=== PATIENT | female | born 2000 | race Caucasian/White ===

== ENCOUNTER 2023-10-31 09:03 | Outpatient (AMB) | payer BC, SELFPAY ==
--- OUTSIDE RECORDS SUMMARY | 2023-10-31 09:05 | XMS_ITS | Continuity of Care Document ---
Author Organization [facility] Dave Neal lt Address [address] [place] [address]- Care Team Providers Care Research Animal Facility Supervisor Name Role Phone Chandan ROTH, Elizabeth Javed Primary Care Physician [facility] Date[facility]): 09[facility]23 - 10/30/23 [facility] Adult [address] [place] [address]- Allergies, Adverse Reactions, Alerts No Known Medication Allergies Substance Reaction Severity Status Bananas angioedmea Active Immunizations Given and Recorded Vaccine Date Status Refusal Reason influenza virus vaccine, inactivated 05/15/22 Alfred rded influenza virus vaccine, inactivated 03/24/21 Alfred rded influenza virus vaccine, inactivated 03/10/20 Alfred rded influenza virus vaccine, inactivated 03/19/19 Alfred rded influenza virus vaccine, inactivated 06/15/18 Alfred rded influenza virus vaccine, inactivated 1 04/18/17 Gi cullen influenza virus vaccine, inactivated 04/26/16 Alfred rded influenza virus vaccine, inactivated 05/19/15 Alfred rded [id number] bivalent booster vax 05/15/22 Recorded SARS-CoV-2 (COVID-19) mRNA-1273 vaccine 09/26/20 R ecorded SARS-CoV-2 (COVID-19) mRNA-1273 vaccine 08/29/20 R ecorded Meningococcal Conjugate Vaccine 06/12/16 Recorded Hepatitis A Pediatric Vaccine 06/12/16 Recorded Hepatitis A Pediatric Vaccine 05/19/15 Recorded pneumococcal 23-valent vaccine 04/26/16 Recorded 1Result Comment: [04/18/2017] [facility] 22092-110-55 Medications 530 G with enlite sensor and supplies 530 G with enlite sensor and supplies, See Instructions, # 1 application, Refills 0, Tot. Refills 0, Maintenance, dispense 530 G with Enlite sensor and supplies for type 1 diabetes, 04/18/15 8:22:45,Compound Start Date: 04/18/15 Status: Ordered albuterol CFC free 90 mcg/inh inhalation aerosol 2 puffs, Inhalation, Every 4 hours, PRN for wheezing, # 8.5 Gm, 0 Refills, Maintenance, Aerosol Start Date: 07/31/09 Status: Ordered Margoth = 180 mg, By Mouth, PRN Other, allergy, 0 Refills, Maintenance, 07/17/15 13:42:12 Start Date: 07/17/15 Status: Ordered Shawn [employer] Contour Test Strips See Instructions, # 360 each, Refills 6, Tot. Refills 6, Maintenance, Use to check blood glucoselevels up to 4 times a day,E10.9, 03/15/22 16:46:00 EDT, Compound, 170, cm, 03/15/22 15:11:00 EDT, Height Start Date: 03/15/22 Status: Ordered Contour Next EZ Test Strips See Instructions, # 360 each, Refills 3, Tot. Refills 3, Maintenance, use as directed for Type 1 Diabetes Mellitus for 90 days, 10/14/19 13:17:00 EDT, Supply, 170, cm, 07/01/19 15:10:00 EST, Height, 101, kg, 01/19/19 13:01:00 EDT, Dry Weight Start Date: 10/14/19 Stop Date: 10/08/20 Status: Ordered Dexcom G6 hemodialysis technician Dexcom G6 hemodialysis technician, See Instructions, # 1 each, Refills 6, Tot. Refills 6, Maintenance, IDDM use with Dexcom sensor, 03/15/22 16:46:00 EDT, Compound, 170, cm, 03/15/22 15:11:00 EDT, Height Start Date: 03/15/22 Status: Ordered Dexcom G6 sensors Dexcom G6 sensors, See Instructions, # 9 each, Refills 3, Tot. Refills 3, Maintenance, IDDM, changeevery 10 days. 90 day supply. E10.65, 09/23/22 14:15:00 EDT, Compound, 170, cm, 09/20/22 14:11:00 EDT, Height Start Date: 09/23/22 Status: Ordered Dexcom G6 transmitter Dexcom G6 transmitter, See Instructions, # 1 each, Refills 3, Tot. Refills 3, Maintenance, IDDM, change every 90 days. E10.65 90 day supply., 09/03/22 15:52:00 EDT, Compound, 170, cm, 09/03/22 15:31:00 EDT, Height Start Date: 09/03/22 Status: Ordered Dulera Inhalation, 2 times a day, 0 Refills, Maintenance, 10/17/16 13:48:29 Start Date: 10/17/16 Status: Ordered Glucagon Emergency Kit See Instructions, # 2 kit, Refills 5, Tot. Refills 5, Maintenance, use for t1dm, 01/15/12 17:39:03 Start Date: 01/15/12 Status: Ordered Glucagon Emergency Kit See Instructions, # 2 kit, Refills 11, Tot. Refills 11, Maintenance, Use as directed for type 1 diabetes PRN low blood glucose, 12/14/13 19:21:27, Compound Start Date: 12/14/13 Status: Ordered Glucagon Emergency Kit See Instructions, PRN, # 2 each, Refills 3, Tot. Refills 3, Maintenance, Blood Glucose, use as directed for Type 1 Diabetes Mellitus, 12/19/21 9:30:00 EDT, Compound, 170, cm, 10/04/21 14:21:00 EDT, Height Start Date: 12/19/21 Stop Date: 04/18/22 Status: Ordered Glucagon Emergency Kit See Instructions, # 2 kit, Refills 11, Tot. Refills 11, Maintenance, Use as directed for type 1 diabetes PRN severe low blood sugar, 07/06/15 14:14:33, Compound Start Date: 07/06/15 Status: Ordered Humalog 100 u/ml subcutaneous injection See Instructions, Subcutaneous Injection, Use as directed for Diabetes mellitus type 1. (Max Dose =120 units/day). 10 mL vials. 90 day supply ID#[id number], # 120 mL, 4 Refills, Maintenance, 03/28/2316:22:00 EDT, [facility],... Start Date: 03/28/23 Stop Date: 06/20/24 Status: Ordered Insulin Syringe, BD Ultra-Fine 0.3 cc 31 G x 8 mm (5/16in) See Instructions, # 100 Doses, Refills 6, Tot. Refills 6, Maintenance, dispense half unit syringes,08/25/09 11:07:30, [facility] [address] Start Date: 08/25/09 Status: Ordered Ketostix See Instructions, # 2 vials, Refills 5, Tot. Refills 5, Maintenance, use as directed for Type 1 Diabetes. Test if blood sugar is >300 x2, or if vomiting or illness. Max use 5x daily, 07/03/18 10:47:49 EST, 2 bottles, Compound Start Date: 07/03/18 Stop Date: 12/30/18 Status: Ordered Lantus 100 u/ml subcutaneous solution = 10 units, Subcutaneous Injection, Daily, IDDM use one daily if pump fails. Max 50 units daily, # 10 mL, 6 Refills, Maintenance, 03/15/22 16:45:00 EDT, Solution, [id number], 170, cm, 03/15/22 15:11:00 EDT, Height Start Date: 03/15/22 Status: Ordered Omnaris 2 sprays, Daily, 0 Refills, Maintenance, 10/17/16 13:48:47 Start Date: 10/17/16 Status: Ordered One Touch Ultra Test Strips See Instructions, # 750 each, Refills 3, Tot. Refills 3, Maintenance, use as directed for Type 1 Diabetes Mellitus. Test 7-8x/daily, 09/30/19 16:08:00 EDT, Compound, 170, cm, 07/01/19 15:10:00 EST, Height, 101, kg, 01/19/19 13:01:00 EDT, Dry Weight Start Date: 09/30/19 Stop Date: 09/24/20 Status: Ordered Patient to use Medtronic 530g with enlite transmitters and sensors Patient to use Medtronic 530g with enlite transmitters and sensors, See Instructions, # 1 each, Refills 0, Tot. Refills 0, Maintenance, Insulin pump and CGM for type 1 diabetes, 05/13/14 8:11:18, Compound Start Date: 05/13/14 Status: Ordered Pen [place], 31 G x 5 mm BD Ultra Fine III See Instructions, # 100 Doses, Refills 6, Tot. Refills 6, Maintenance, use with insulin pen, 08/25/09 11:08:04[facility] [address] Start Date: 08/25/09 Status: Ordered Spiriva = 18 mcg, Inhalation, Daily, 0 Refills, Maintenance, 10/17/16 13:48:37 Start Date: 10/17/16 Status: Ordered Problem List Condition Confirmation Course Effective Dates Status Health St atus Informant Asthma Confirmed Active Insulin dependent diabetes mellitus Confirmed Active Obesity Confirmed Active Severe obesity Confirmed Active Thyroid nodule Confirmed Active Diabetes mellitus type 1 with goal HbA1C below 7.5 Confirmed Active Social History Social History Type Response Smoking Status Never (less than 100 in lifetime) entered on: 09/13/21 Sex Patient Care team information Care Team Personnel Name: Chandan ROTH, Elizabeth Javed Position: [facility] PCO Associate Professional Member Role: PCP Address: Address: [address] [place] [id number]- [place] Care Team Related Persons Name: JAROCHO ZARATE Address: [address] [place] [address] Name: DAPHNEY ZARATE Address: [address] [place], [place] Name: DAPHNEY ZARATE Address: [address] [place] [address]
--- OUTSIDE RECORDS SUMMARY | 2023-10-31 09:05 | XMS_ITS | Continuity of Care Document ---
Author Organization [facility] Address [address] [place] [id number]- Care Team Providers Care Linseed Oil Press Tender Name Role Phone Chandan ROTH, Elizabeth Javed Primary Care Physician [phone] [facility]counter [facility] Date(s): 03/12/23 - 04/11/23 [facility] [address] [place] [id number] Allergies, Adverse Reactions, Alerts No Known Medication [...] influenza virus vaccine, inactivated 05/19/15 Alfred rded [id number] bivalent booster vax 05/15/22 Recorded SARS-CoV-2 (COVID-19) mRNA-1273 vaccine 09/26/20 R ecorded SARS-CoV-2 (COVID-19) mRNA-1273 vaccine 08/29/20 R ecorded Meningococcal Conjugate Vaccine 06/12/16 Recorded Hepatitis A Pediatric Vaccine 06/12/16 Recorded Hepatitis A Pediatric Vaccine 05/19/15 Recorded pneumococcal 23-valent vaccine 04/26/16 Recorded 1Result Comment: [04/18/2017] [facility] 74549-550-18 Medications 530 G with enlite sensor and [...] 07/17/15 13:42:12 Start Date: 07/17/15 Status: Ordered Mouth Party Contour Test Strips See Instructions, # 360 [...] Stop Date: 10/08/20 Status: Ordered Dexcom G6 home visits nurse Dexcom G6 home visits nurse, See Instructions, # 1 each, Refills 6, [...] units/day). 10 mL vials. 90 day supply ID#[id number], # 120 mL, 4 Refills, Maintenance, 03/28/2316:22:00 EDT, [facility],... Start Date: 03/28/23 Stop Date: 06/20/24 [...] Compound Start Date: 05/13/14 Status: Ordered Pen [place], 31 G x 5 mm BD Ultra Fine III See Instructions, # 100 Doses, Refills 6, Tot. Refills 6, Maintenance, use with insulin pen, 08/25/09 11:08:04, [facility] [address] Start Date: 08/25/09 Status: Ordered [...] Personnel Name: Chandan ROTH, Elizabeth Javed Position: [facility] PCO Associate Professional Member Role: PCP Address: Address: [address] [place] [address]- Care Team Related Persons Name: JAROCHO ZARATE Address: [address] [address] Name: DAPHNEY ZARATE Address: [address] [place], [place] Name: DAPHNEY ZARATE Address: [address] [address]
--- OUTSIDE RECORDS SUMMARY | 2023-10-31 09:05 | XMS_ITS | Continuity of Care Document ---
Author Organization [facility] Diabetes Address [address] [place] [address]- Care Team Providers Care Varnish Dipper Name Role Phone Chandan ROTH, Elizabeth Javed Primary Care Physician [phone] [facility]counter [facility] Date(s): 02/18/22 - 03/20/22 [facility] Diabetes [address] [place] [id number] Allergies, Adverse Reactions, Alerts No Known Medication Allergies Substance Reaction Severity Status Bananas angioedmea Active Immunizations Given and Recorded Vaccine Date Status Refusal Reason influenza virus vaccine, inactivated 03/24/21 Alfred rded influenza virus vaccine, inactivated 03/10/20 Alfred rded influenza virus vaccine, inactivated 03/19/19 Alfred rded influenza virus vaccine, inactivated 06/15/18 Alfred rded influenza virus vaccine, inactivated 1 04/18/17 Gi cullen influenza virus vaccine, inactivated 04/26/16 Alfred rded influenza virus vaccine, inactivated 05/19/15 Alfred rded SARS-CoV-2 (COVID-19) mRNA-1273 vaccine 09/26/20 R ecorded SARS-CoV-2 (COVID-19) mRNA-1273 vaccine 08/29/20 R ecorded Meningococcal Conjugate Vaccine 06/12/16 Recorded Hepatitis A Pediatric Vaccine 06/12/16 Recorded Hepatitis A Pediatric Vaccine 05/19/15 Recorded pneumococcal 23-valent vaccine 04/26/16 Recorded 1Result Comment: [04/18/2017] [facility] [id number] Medications 530 G with enlite sensor and [...] 07/17/15 13:42:12 Start Date: 07/17/15 Status: Ordered [employer] Contour Test Strips See Instructions, # 360 [...] Stop Date: 10/08/20 Status: Ordered Dexcom G6 logistics research engineer Dexcom G6 logistics research engineer, See Instructions, # 1 each, Refills 6, Tot. Refills 6, Maintenance, IDDM use with Dexcom sensor, 03/15/22 16:46:00 EDT, Compound, 170, cm, 03/15/22 15:11:00 EDT, Height Start Date: 03/15/22 Status: Ordered Dexcom G6 sensors Dexcom G6 sensors, See Instructions, # 3 each, Refills 11, Tot. Refills 11, Maintenance, IDDM, change every 10 days, 03/15/22 16:46:00 EDT, Compound, 170, cm, 03/15/22 15:11:00 EDT, Height Start Date: 03/15/22 Status: Ordered Dexcom G6 transmitter Dexcom G6 transmitter, See Instructions, # 1 each, Refills 3, Tot. Refills 3, Maintenance, IDDM, change every 90 days, 02/13/21 9:58:00 EDT, Compound, 170, cm, 12/20/20 15:10:00 EDT, Height Start Date: 02/13/21 Status: Ordered docusate sodium 100 mg oral capsule 100 mg, 1, capsule, By Mouth, 2 times a day, PRN, with plenty of water. Take while on narcotic medications., # 20 capsule, Refills 0, Tot. Refills 0, Maintenance, as needed for constipation, 07/09/1809:12:55, Print Requisition Start Date: 07/09/17 Status: Ordered Dulera Inhalation, 2 times a [...] (Max Dose =120 units/day). 10 mL vials. ID#[id number], # 100 mL, 6 Refills, Maintenance, 03/15/22 16:45:00 EDT,[id number], 170, cm, 03/15/22 15:11:00 ED... Start Date: 03/15/22 Stop Date: 12/05/23 Status: Ordered Insulin Syringe, BD Ultra-Fine 0.3 [...] Compound Start Date: 05/13/14 Status: Ordered Pen [place], 31 G x 5 mm BD Ultra Fine III See Instructions, # 100 Doses, Refills 6, Tot. Refills 6, Maintenance, use with insulin pen, 08/25/09 11:08:04, [facility], [address] Start Date: 08/25/09 Status: Ordered Spiriva = 18 mcg, Inhalation, Daily, 0 Refills, Maintenance, 10/17/16 13:48:37 Start Date: 10/17/16 Status: Ordered Problem List Condition Confirmation Course Effective Dates Status Health St atus Informant Asthma Confirmed Active Insulin dependent diabetes mellitus Confirmed Active Obese class II Confirmed Active Obesity Confirmed Active Thyroid nodule Confirmed Active Diabetes mellitus type 1 with goal HbA1C below 7.5 Confirmed Active Social History Social History Type Response Smoking Status Never (less than 100 in lifetime) entered on: 09/13/21 Sex Patient Care team information Personnel Name: Elizabeth Hawley NP Address: Address: [address] [place] [id number]
--- OUTSIDE RECORDS SUMMARY | 2023-10-31 09:05 | XMS_ITS | Continuity of Care Document ---
Author Organization [facility] Address [address] [place] [phone]- Care Team Providers Care Technical Support Manager Name Role Phone Kang DORae Primary Care Physician [place] [facility] [place] 12/17/19 - 01/16/20 [facility] [address] [place] [address]- [facility] Allergies, Adverse Reactions, Alerts No Known Medication Allergies Substance Reaction Severity Status Bananas angioedmea Active Immunizations Given and Recorded Vaccine Date Status Refusal Reason influenza virus vaccine, inactivated 1 04/18/17 Gi cullen 1Result Comment: [04/18/2017] [facility] 36850-508-36 Medications 530 G with enlite sensor and [...] 13:42:12 Start Date: 07/17/15 Status: Ordered Shawn [employer] Contour Test Strips See Instructions, # 360 each, Refills 3, Tot. Refills 3, Maintenance, Use to check blood glucoselevels up to 4 times a day,E10.9, 10/01/19 13:50:00 EDT, Compound, 170, cm, 07/01/19 15:10:00 EST, Height, 101, kg, 01/19/19 13:01:00 EDT, Dry Weight Start Date: 10/01/19 Status: Ordered Contour Next EZ Test Strips See Instructions, # 360 each, Refills 3, Tot. Refills 3, Maintenance, use as directed for Type 1 Diabetes Mellitus for 90 days, 10/14/19 13:17:00 EDT, Supply, 170, cm, 07/01/19 15:10:00 EST, Height, 101, kg, 01/19/19 13:01:00 EDT, Dry Weight Start Date: 10/14/19 Stop Date: 10/08/20 Status: Ordered Dexcom G6 armhole feller handstitching machine Dexcom G6 armhole feller handstitching machine, See Instructions, # 1 each, Refills 0, Tot. Refills 0, Maintenance, IDDM use with Dexcom sensor, 01/19/19 13:35:18 EDT, Compound Start Date: 01/19/19 Status: Ordered Dexcom G6 sensors Dexcom G6 sensors, See Instructions, # 3 each, Refills 11, Tot. Refills 11, Maintenance, IDDM, change every 10 days, 01/19/19 18:19:00 EDT, Compound Start Date: 01/19/19 Status: Ordered Dexcom G6 transmitter Dexcom G6 transmitter, See Instructions, # 1 each, Refills 11, Tot. Refills 11, Maintenance, IDDM, change every 90 days, 01/19/19 13:36:25 EDT, Compound Start Date: 01/19/19 Status: Ordered docusate sodium 100 mg oral [...] 14:14:33, Compound Start Date: 07/06/15 Status: Ordered Glucagon Emergency Kit See Instructions, # 2 kit, Refills 5, Tot. Refills 5, Maintenance, use for t1dm, 01/15/12 17:39:03 Start Date: 01/15/12 Status: Ordered Glucagon Emergency Kit See Instructions, PRN, # 2 each, Refills 3, Tot. Refills 3, Maintenance, Blood Glucose, use as directed for Type 1 Diabetes Mellitus, 10/01/19 13:46:00 EDT, Compound, 170, cm, 07/01/19 15:10:00 EST, Height, 101, kg, 01/19/19 13:01:00 EDT, Dry Weight Start Date: 10/01/19 Stop Date: 01/29/20 Status: Ordered Glucagon Emergency Kit See Instructions, # 2 kit, Refills 11, Tot. Refills 11, Maintenance, Use as directed for type 1 diabetes PRN low blood glucose, 12/14/13 19:21:27, Compound Start Date: 12/14/13 Status: Ordered Humalog 100 u/ml subcutaneous injection See Instructions, Subcutaneous Infusion. max 75 unit daily, 11 Refills, Maintenance, 30, days Start Date: 11/02/10 Status: Ordered Humalog 100 u/ml subcutaneous injection See Instructions, Subcutaneous Injection, Use as directed for Diabetes mellitus type 1. (Max Dose =120 units/day). 10 mL vials. ID#[id number], # 120 mL, 3 Refills, Maintenance, 12/17/19 9:33:00 EDT, [facility], 170, cm, ... Start Date: 12/17/19 Stop Date: 12/11/20 Status: Ordered Insulin Syringe, BD Ultra-Fine 0.3 cc 31 G x 8 mm (5/16in) See Instructions, # 100 Doses, Refills 6, Tot. Refills 6, Maintenance, dispense half unit syringes,08/25/09 11:07:30, [facility], [address] Start Date: 08/25/09 Status: [...] daily, # 10 mL, 6 Refills, Maintenance, 06/30/18 16:18:23 EST, Solution Start Date: 06/30/18 Status: Ordered Omnaris 2 sprays, Daily, 0 [...] Compound Start Date: 05/13/14 Status: Ordered Pen [place], 31 G x 5 mm BD Ultra Fine III See Instructions, # 100 Doses, Refills 6, Tot. Refills 6, Maintenance, use with insulin pen, 08/25/09 11:08:04, [facility] [address] Start Date: 08/25/09 Status: Ordered Spiriva = 18 mcg, Inhalation, Daily, 0 Refills, Maintenance, 10/17/16 13:48:37 Start Date: 10/17/16 Status: Ordered Problem List Condition Effective Dates Status Health Status Inform ant Asthma(Confirmed) Active Insulin dependent diabetes mellitus(Confirmed) Active Obesity(Confirmed) Active Thyroid nodule(Confirmed) Active Diabetes mellitus type 1 wit h goal HbA1C below 7.5(Confirmed) Active Social History Social History Type Response Smoking Status Never smoker; Tobacc o user in household: No entered on: 8/11/17 Sex
--- OUTSIDE RECORDS SUMMARY | 2023-10-31 09:05 | XMS_ITS | Continuity of Care Document ---
Author Organization [facility] ter Address [address] [place] [address]- Care Team Providers Care Political Cartoonist Name Role Phone Kang Rae Primary Care Physician [place] [facility] [place] Date(s): 10/31/20 - 11/30/[address] [address]- Attending Physician: Admtr, Ar8 Admitting Physician: Admtr, Ar8 Referring Physician: Admtr, Ar8 Allergies, Adverse Reactions, Alerts No Known Medication Allergies Substance Reaction Severity Status Bananas angioedmea Active Immunizations Given and Recorded Vaccine Date Status Refusal Reason influenza virus vaccine, inactivated 1 04/18/17 Gi cullen 1Result Comment: [04/18/2017] [facility] [id number] Medications 530 G with enlite sensor and [...] Stop Date: 10/08/20 Status: Ordered Dexcom G6 icu specialist Dexcom G6 icu specialist, See Instructions, # 1 each, Refills 0, Tot. Refills 0, Maintenance, IDDM use with Dexcom sensor, 02/02/20 16:07:00 EDT, Compound, 170, cm, 02/02/20 15:35:00 EDT, Height, 101, kg, 01/19/19 13:01:00 EDT, Dry Weight Start Date: 02/02/20 Status: Ordered Dexcom G6 sensors Dexcom G6 sensors, See Instructions, # 3 each, Refills 11, Tot. Refills 11, Maintenance, IDDM, change every 10 days, 02/02/20 16:07:00 EDT, Compound, 170, cm, 02/02/20 15:35:00 EDT, Height, 101, kg, 01/19/19 13:01:00 EDT, Dry Weight Start Date: 02/02/20 Status: Ordered Dexcom G6 transmitter Dexcom G6 transmitter, See Instructions, # 1 each, Refills 3, Tot. Refills 3, Maintenance, IDDM, change every 90 days, 03/14/20 10:25:00 EDT, Compound, 170, cm, 02/02/20 15:35:00 EDT, Height, 101, kg, 01/19/19 13:01:00 EDT, Dry Weight Start Date: 03/14/20 Status: Ordered docusate sodium 100 mg oral [...] (Max Dose =120 units/day). 10 mL vials. ID#[id number], # 120 mL, 3 Refills, Maintenance, 12/17/19 9:33:00 EDT, [facility], 170, cm, ... Start Date: 12/17/19 Stop Date: 12/11/20 Status: Ordered Insulin Syringe, BD Ultra-Fine 0.3 cc 31 G x 8 mm (5/16in) See Instructions, # 100 Doses, Refills 6, Tot. Refills 6, Maintenance, dispense half unit syringes,08/25/09 11:07:30, [facility] [place] [address] Start Date: 08/25/09 Status: Ordered Ketostix [...] Compound Start Date: 05/13/14 Status: Ordered Pen [place], 31 G x 5 mm BD Ultra [...] o user in household: No entered on: 01/17/17 Sex
--- OUTSIDE RECORDS SUMMARY | 2023-10-31 09:05 | XMS_ITS | Continuity of Care Document ---
Author Organization [facility] Address [address] [place] [address]- Care Team Providers Care County Agent Name Role Phone Chandan ROTH, Elizabeth Javed Primary Care Physician [phone] [facility]counter [facility] Date(s): 12/19/21 - 01/18/22 [facility] [address] [place] [id number] Allergies, Adverse Reactions, Alerts No Known Medication [...] 23-valent vaccine 04/26/16 Recorded 1Result Comment: [04/18/2017] [facility] 36719-207-29 Medications 530 G with enlite sensor and [...] 07/17/15 13:42:12 Start Date: 07/17/15 Status: Ordered [employer] Contour Test Strips See Instructions, # 360 [...] Stop Date: 10/08/20 Status: Ordered Dexcom G6 insurance representative Dexcom G6 insurance representative, See Instructions, # 1 each, Refills 0, Tot. Refills 0, Maintenance, IDDM use with Dexcom sensor, 02/02/20 16:07:00 EDT, Compound, 170, cm, 02/02/20 15:35:00 EDT, Height, 101, kg, 01/19/19 13:01:00 EDT, Dry Weight Start Date: 02/02/20 Status: Ordered Dexcom G6 sensors Dexcom G6 sensors, See Instructions, # 3 each, Refills 11, Tot. Refills 11, Maintenance, IDDM, change every 10 days, 02/13/21 9:55:00 EDT, Compound, 170, cm, 12/20/20 15:10:00 EDT, Height Start Date: 02/13/21 Status: Ordered Dexcom G6 transmitter Dexcom G6 [...] (Max Dose =120 units/day). 10 mL vials. ID#[id number], # 100 mL, 2 Refills, Maintenance, 12/19/21 11:58:00 EDT,[facility], 170, cm, 10/04... Start Date: 12/19/21 Stop Date: 09/15/22 Status: Ordered Insulin Syringe, BD Ultra-Fine 0.3 cc 31 G x 8 mm (5/16in) See Instructions, # 100 Doses, Refills 6, Tot. Refills 6, Maintenance, dispense half unit syringes,08/25/09 11:07:30, [facility], [address] Start Date: 08/25/09 Status: [...] Compound Start Date: 05/13/14 Status: Ordered Pen [place], 31 G x 5 mm BD Ultra [...] Asthma(Confirmed) Active Insulin dependent diabetes mellitus(Confirmed) Active Obese class II(Confirmed) Active Obesity(Confirmed) Active Thyroid nodule(Confirmed) Active Diabetes mellitus type 1 wit h goal HbA1C below 7.5(Confirmed) Active Social History Social History Type Response Smoking Status Never (less than 100 in lifetime) entered on: 09/13/21 Sex
--- OUTSIDE RECORDS SUMMARY | 2023-10-31 09:05 | XMS_ITS | Continuity of Care Document ---
Author Organization [facility] Neal lt Address [address] [place] [address]- Care Team Providers Care Ophthalmic Surgical Assistant Name Role Phone Chandan ROTH, Elizabeth Javed Primary Care Physician [phone] Encounter [facility] Date(s): 09/14/21 - 10/14/21 [facility] Adult [address] [place] [address]- Allergies, Adverse Reactions, Alerts No Known Medication [...] 23-valent vaccine 04/26/16 Recorded 1Result Comment: [04/18/2017] [facility] [id number] Medications 530 G with enlite sensor and [...] 07/17/15 13:42:12 Start Date: 07/17/15 Status: Ordered [employer] Contour Test Strips See Instructions, # 360 [...] Stop Date: 10/08/20 Status: Ordered Dexcom G6 chief communications officer Dexcom G6 chief communications officer, See Instructions, # 1 each, Refills 0, [...] (Max Dose =120 units/day). 10 mL vials. ID#[id number], # 100 mL, 2 Refills, Maintenance, 02/27/21 11:06:00 EDT,[facility], 170, cm, 12/20... Start Date: 02/27/21 Stop Date: 11/24/21 Status: Ordered Insulin Syringe, BD Ultra-Fine 0.3 cc 31 G x 8 mm (5/16in) See Instructions, # 100 Doses, Refills 6, Tot. Refills 6, Maintenance, dispense half unit syringes,08/25/09 11:07:30, [facility], [address] Start Date: 08/25/09 Status: [...] Compound Start Date: 05/13/14 Status: Ordered Pen [place], 31 G x 5 mm BD Ultra [...]
--- OUTSIDE RECORDS SUMMARY | 2023-10-31 09:05 | XMS_ITS | Continuity of Care Document ---
Author Organization [facility] Address [address] [place] [address]- Care Team Providers Care Machine Spreader Name Role Phone Chandan ROTH, Elizabeth Javed Primary Care Physician Encounter [facility] Date(s): 10/04/21 - 11/03/21 [facility] [address] [place] [address] Attending Physician: Admtr, Ar8 Admitting Physician: Admtr, [...] 23-valent vaccine 04/26/16 Recorded 1Result Comment: [04/18/2017] [facility] [id number] Medications 530 G with enlite sensor and [...] 07/17/15 13:42:12 Start Date: 07/17/15 Status: Ordered [employer] Contour Test Strips See Instructions, # 360 [...] Stop Date: 10/08/20 Status: Ordered Dexcom G6 pharmaceutical physician Dexcom G6 pharmaceutical physician, See Instructions, # 1 each, Refills 0, [...] (Max Dose =120 units/day). 10 mL vials. ID#[id number], # 100 mL, 2 Refills, Maintenance, 02/27/21 11:06:00 EDT,[facility], 170, cm, 12/20... Start Date: 02/27/21 Stop Date: 11/24/21 Status: Ordered Insulin Syringe, BD Ultra-Fine 0.3 cc 31 G x 8 mm (516in) See Instructions, # 100 Doses, Refills 6, Tot. Refills 6, Maintenance, dispense half unit syringes,08/25/09 11:07:30, [facility], [address] Start Date: 08/25/09 Status: [...] Compound Start Date: 05/13/14 Status: Ordered Pen [place], 31 G x 5 mm BD Ultra [...]
--- OUTSIDE RECORDS SUMMARY | 2023-10-31 09:05 | XMS_ITS | Continuity of Care Document ---
Author Organization [facility] Address [address] [place] [address]- Care Team Providers Care Bleaching Machine Operator Name Role Phone aRe Kapadia DO Primary Care Physician [phone] Encounter [facility] Date(s): 12/14/19 - 01/13/20 [facility] [address] [place] [address]- [facility] Allergies, Adverse Reactions, Alerts No Known Medication Allergies Substance Reaction Severity Status Bananas angioedmea Active Immunizations Given and Recorded Vaccine Date Status Refusal Reason influenza virus vaccine, inactivated 1 04/18/17 Gi cullen 1Result Comment: [04/18/2017] [facility] 42028-832-03 Medications 530 G with enlite sensor and [...] Stop Date: 10/08/20 Status: Ordered Dexcom G6 maintenance service dispatcher Dexcom G6 maintenance service dispatcher, See Instructions, # 1 each, Refills 0, [...] (Max Dose =120 units/day). 10 mL vials. ID#[id number], # 120 mL, 3 Refills, Maintenance, 12/17/19 9:33:00 EDT, [facility], 170, cm, ... Start Date: 12/17/19 Stop Date: 12/11/20 Status: Ordered Insulin Syringe, BD Ultra-Fine 0.3 cc 31 G x 8 mm (5/16in) See Instructions, # 100 Doses, Refills 6, Tot. Refills 6, Maintenance, dispense half unit syringes,08/25/09 11:07:30, [facility], [address] Start Date: 08/25/09 Status: [...] Compound Start Date: 05/13/14 Status: Ordered Pen [place], 31 G x 5 mm BD Ultra [...]
--- OUTSIDE RECORDS SUMMARY | 2023-10-31 09:05 | XMS_ITS | Continuity of Care Document ---
Author Organization [facility] Diabetes Address [address] [place] [address]- Care Team Providers Care Defense Travel Administrator Name Role Phone Rae Kapadia DO Primary Care Physician [phone] Encounter [facility] Date(s): 02/13/21 - 03/15/21 [facility] [address] [place] [address] Allergies, Adverse Reactions, Alerts No Known Medication Allergies Substance Reaction Severity Status Bananas angioedmea Active Immunizations Given and Recorded Vaccine Date Status Refusal Reason influenza virus vaccine, inactivated 1 04/18/17 Gi cullen 1Result Comment: [04/18/2017] [facility] 04703-915-03 Medications 530 G with enlite sensor and [...] Stop Date: 10/08/20 Status: Ordered Dexcom G6 lock maintenance supervisor Dexcom G6 lock maintenance supervisor, See Instructions, # 1 each, Refills 0, [...] (Max Dose =120 units/day). 10 mL vials. ID#[id number], # 100 mL, 2 Refills, Maintenance, 02/27/21 11:06:00 EDT,[facility], 170, cm, 12/20... Start Date: 02/27/21 Stop Date: 11/24/21 Status: Ordered Insulin Syringe, BD Ultra-Fine 0.3 cc 31 G x 8 mm (5/16in) See Instructions, # 100 Doses, Refills 6, Tot. Refills 6, Maintenance, dispense half unit syringes,08/25/09 11:07:30, [facility], [address] Start Date: 08/25/09 [...] Compound Start Date: 05/13/14 Status: Ordered Pen [place], 31 G x 5 mm BD Ultra Fine III See Instructions, # 100 Doses, Refills 6, Tot. Refills 6, Maintenance, use with insulin pen, 08/25/09 11:08:04, [address] Start Date: 08/25/09 Status: Ordered Spiriva [...]
--- OUTSIDE RECORDS SUMMARY | 2023-10-31 09:05 | XMS_ITS | Continuity of Care Document ---
Author Organization [facility] Address [address] [place] [address]- Care Team Providers Care Transformer Shop Supervisor Name Role Phone Rae Kapadia DO Primary Care Physician [phone] Encounter [facility] Date(s): 09/15/20 - 11/30/[address] [address]- Attending Physician: Kenny Ruggiero MD Admitting Physician: Kenny Ruggiero MD Referring Physician: Rae Kapadia DO Allergies, Adverse Reactions, Alerts No Known Medication Allergies Substance Reaction Severity Status Bananas angioedmea Active Immunizations Given and Recorded Vaccine Date Status Refusal Reason influenza virus vaccine, inactivated 1 04/18/17 Gi cullen 1Result Comment: [04/18/2017] [facility] 96674-289-45 Medications 530 G with enlite sensor and [...] glucoselevels up to 4 times a day,E10.9, 04/24/20 13:50:00 EDT, Compound, 170, cm, 07/01/19 15:10:00 [...] Stop Date: 10/08/20 Status: Ordered Dexcom G6 gold frame assembler Dexcom G6 gold frame assembler, See Instructions, # 1 each, Refills 0, [...] (Max Dose =120 units/day). 10 mL vials. ID#[id number], # 120 mL, 3 Refills, Maintenance, 12/17/19 9:33:00 EDT, [facility], 170, cm, ... Start Date: 12/17/19 Stop Date: 12/11/20 Status: Ordered Insulin Syringe, BD Ultra-Fine 0.3 cc 31 G x 8 mm (5/16in) See Instructions, # 100 Doses, Refills 6, Tot. Refills 6, Maintenance, dispense half unit syringes,08/25/09 11:07:30, [facility] [place] [address] Start Date: 08/25/09 Status: Ordered Ketostix [...] Compound Start Date: 05/13/14 Status: Ordered Pen [place], 31 G x 5 mm BD Ultra [...]
--- OUTSIDE RECORDS SUMMARY | 2023-10-31 09:05 | XMS_ITS | Continuity of Care Document ---
Author Organization [facility] Diabetes Address [address] [place] [address]- Care Team Providers Care Astronomy Department Chair Name Role Phone Rae Kapadia DO Primary Care Physician Encounter [facility] Date(s): 06/16/20 - 09/16/20 [facility] [address] [place] [address] Attending Physician: Kenny Ruggireo MD Admitting Physician: Kenny Ruggiero MD Referring Physician: Rae Kapadia DO Allergies, Adverse Reactions, Alerts No Known Medication Allergies Substance Reaction Severity Status Bananas angioedmea Active Immunizations Given and Recorded Vaccine Date Status Refusal Reason influenza virus vaccine, inactivated 1 04/18/17 Gi cullen 1Result Comment: [04/18/2017] [facility] [id number] Medications 530 G with enlite sensor and [...] Stop Date: 10/08/20 Status: Ordered Dexcom G6 boring inspector Dexcom G6 boring inspector, See Instructions, # 1 each, Refills 0, [...] (Max Dose =120 units/day). 10 mL vials. ID#[id number], # 120 mL, 3 Refills, Maintenance, 12/17/19 9:33:00 EDT, [facility], 170, cm, 01/23/... Start Date: 12/17/19 Stop Date: 12/11/20 Status: Ordered Insulin Syringe, BD Ultra-Fine 0.3 cc 31 G x 8 mm (5/16in) See Instructions, # 100 Doses, Refills 6, Tot. Refills 6, Maintenance, dispense half unit syringes,08/25/09 11:07:30, [facility] [place] [address] Start Date: 08/25/09 Status: Ordered Ketostix [...] Compound Start Date: 05/13/14 Status: Ordered Pen [place], 31 G x 5 mm BD Ultra [...]
--- OUTSIDE RECORDS SUMMARY | 2023-10-31 09:05 | XMS_ITS | Continuity of Care Document ---
Author Organization [facility] Endocrinolo gy and Diabetes Address [address] [place] [address]- Care Team Providers Care Tour Narrator Name Role Phone Chandan ROTH, Elizabeth Javed Primary Care Physician [facility]counter [facility] Date(s): 07/31/22 - 08/30/22 [facility] Endocrinology and Diabetes [address] [place] [address] Allergies, Adverse Reactions, Alerts No Known Medication [...] 23-valent vaccine 04/26/16 Recorded 1Result Comment: [04/18/2017] [facility] 62835-580-29 Medications 530 G with enlite sensor and [...] 07/17/15 13:42:12 Start Date: 07/17/15 Status: Ordered [employer] Contour Test Strips See Instructions, # 360 [...] Stop Date: 10/08/20 Status: Ordered Dexcom G6 flotation operator Dexcom G6 flotation operator, See Instructions, # 1 each, Refills 6, Tot. Refills 6, Maintenance, IDDM use with Dexcom sensor, 03/15/22 16:46:00 EDT, [facility], 170, cm, 03/15/22 15:11:00 EDT, Height Start Date: 03/15/22 Status: Ordered Dexcom G6 sensors Dexcom G6 sensors, See Instructions, # 3 each, Refills 11, Tot. Refills 11, Maintenance, IDDM, change every 10 days. 90 day supply. E10.65, 04/01/22 15:11:00 EDT, Compound, 170, cm, 03/15/22 15:11:00EDT, Height Start Date: 04/01/22 Status: Ordered Dexcom G6 transmitter Dexcom G6 transmitter, See Instructions, # 1 each, Refills 3, Tot. Refills 3, Maintenance, IDDM, change every 90 days. E10.65 90 day supply., 04/01/22 15:18:00 EDT, Compound, 170, cm, 03/15/22 15:11:00 EDT, Height Start Date: 04/01/22 Status: Ordered docusate sodium 100 mg oral [...] units/day). 10 mL vials. 90 day supply ID#[id number], # 120 mL, 4 Refills, Maintenance, 06/27/2311:16:00 EST, [facility],... Start Date: 06/27/22 Stop Date: 09/20/23 Status: Ordered Insulin Syringe, BD Ultra-Fine 0.3 cc 31 G x 8 mm (5/16in) See Instructions, # 100 Doses, Refills 6, Tot. Refills 6, Maintenance, dispense half unit syringes,08/25/09 11:07:30, [facility], [address] Start Date: 08/25/09 [...] 6 Refills, Maintenance, 03/15/22 16:45:00 EDT, Solution, [facility]/pharmacy #[id number], 170, cm, 03/15/22 15:11:00 EDT, Height [...] Compound Start Date: 05/13/14 Status: Ordered Pen [place], 31 G x 5 mm BD Ultra [...] Personnel Name: Chandan ROTH, Elizabeth Javed Position: [facility] PCO Associate Professional Member Role: PCP Address: Address: [address] [place] [address]- Care Team Related Persons Name: JAROCHO ZARATE Address: [address] Name: DAPHNEY ZARATE Address: [address] Name: DAPHNEY ZARATE Address: [address]
--- OUTSIDE RECORDS SUMMARY | 2023-10-31 09:05 | XMS_ITS | Continuity of Care Document ---
Author Organization [facility] Neal lt Address [address] [place] [address]- Care Team Providers Care Votator Machine Operator Name Role Phone Chandan ROTH, Elizabeth Javed Primary Care Physician Encounter [facility] Date(s): 09/20/22 - 09/27/22 [facility] Adult [address] [place] [address]- Encounter Diagnosis Annual physical exam(Discharge Diagnosis) - 09/20/22 Asthma(Discharge Diagnosis) - 09/20/22 Diabetes mellitus type 1 with goal HbA1C below 7.5(Discharge Diagnosis) - 09/20/22 Severe obesity(Discharge Diagnosis) - 09/20/22 Abscess(Discharge Diagnosis) - 09/20/22 Attending Physician: Chandan ROTH, Elizabeth Javed Referring Physician: Jamie Lindsay MD Allergies, Adverse Reactions, Alerts No Known Medication [...] influenza virus vaccine, inactivated 05/19/15 Alfred rded [id number] bivalent booster vax 05/15/22 Recorded SARS-CoV-2 (COVID-19) mRNA-1273 vaccine 09/26/20 R ecorded SARS-CoV-2 (COVID-19) mRNA-1273 vaccine 08/29/20 R ecorded Meningococcal Conjugate Vaccine 06/12/16 Recorded Hepatitis A Pediatric Vaccine 06/12/16 Recorded Hepatitis A Pediatric Vaccine 05/19/15 Recorded pneumococcal 23-valent vaccine 04/26/16 Recorded 1Result Comment: [04/18/2017] [facility] [id number] Medications 530 G with enlite sensor and [...] 13:42:12 Start Date: 07/17/15 Status: Ordered Shawn Sk[employer] Contour Test Strips See Instructions, # 360 [...] Stop Date: 10/08/20 Status: Ordered Dexcom G6 fleecer Dexcom G6 fleecer, See Instructions, # 1 each, Refills 6, [...] units/day). 10 mL vials. 90 day supply ID#[id number], # 120 mL, 4 Refills, Maintenance, 09/04/2313:12:00 EDT, [facility],... Start Date: 09/04/22 Stop Date: 11/28/23 Status: Ordered Insulin Syringe, BD Ultra-Fine 0.3 cc 31 G x 8 mm (5/16in) See Instructions, # 100 Doses, Refills 6, Tot. Refills 6, Maintenance, dispense half unit syringes,08/25/09 11:07:30, [facility], [address] Start Date: 08/25/09 [...] 6 Refills, Maintenance, 03/15/22 16:45:00 EDT, Solution, [facility]/pharmacy #[id number], 170, cm, 03/15/22 15:11:00 EDT, Height Start Date: 03/15/22 Status: Ordered mupirocin 2% topical cream 1 application, Topically, 3 times a day, for 5 days, # 15 Gm, 1 Refills, Acute 09/30/22 14:24:00 EDT, 09/20/22 14:24:00 EDT, Cream, [facility], Partial fill upon patient request if the prescription is for a schedule II opioid . Start Date: 09/20/22 Stop Date: 09/30/22 Status: Ordered Omnaris 2 sprays, Daily, 0 [...] Compound Start Date: 05/13/14 Status: Ordered Pen [place], 31 G x 5 mm BD Ultra Fine III See Instructions, # 100 Doses, Refills 6, Tot. Refills 6, Maintenance, use with insulin pen, 08/25/09 11:08:04, [address] Start Date: 08/25/09 Status: Ordered Spiriva = 18 mcg, Inhalation, Daily, 0 Refills, Maintenance, 10/17/16 13:48:37 Start Date: 10/17/16 Status: Ordered Problem List Condition Confirmation Course Effective Dates Status Health St at Informant Asthma Confirmed Active Insulin dependent diabetes mellitus Confirmed Active Obesity Confirmed Active Severe obesity Confirmed Active Thyroid nodule Confirmed Active Diabetes mellitus type 1 with goal HbA1C below 7.5 Confirmed Active Diagnosis Diagnosis Type Effective Dates Health Status inical Service Informant Annual physical exam Discharge Diagnosis 09/20/22 Asthma Discharge Diagnosis 09/20/22 Diabetes mellitus type 1 with goal HbA1C below 7.5 Discharge Diagnosis 09/20/22 Severe obesity Discharge Diagnosis 09/20/22 Abscess Discharge Diagnosis 09/20/22 Vital Signs Most recent to oldest [Reference Range]: 1 Height 170.0 cm (09/20/22 2:11 PM) Weight 118.3 kg (09/20/22 2:11 PM) Oxygen Saturation [94-100 %] 99 % (09/20/22 2:11 PM) Pulse Rate [55-90 bpm] 93 bpm *H* (09/20/22 2:11 PM) Body Mass Index [18.5-24.99 kg/m2] 40.93 kg/m2 *>HHI* (09/20/22 2:11 PM) Blood Pressure [90-138/55-84 mm Hg] 122/ 69mm Hg (09/20/22 2:11 PM) Blood pressure sites Arm, left (09/20/22 2:11 PM) Weight Obtained Via Standing scale (09/20/22 2:11 PM) Social History Social History Type Response Smoking Status Never (less than 100 in lifetime) entered on: 09/13/21 Sex Patient Care team information Care Team Personnel Name: Chandan ROTH, Elizabeth Javed Position: [facility] PCO Associate Professional Member Role: PCP Address: Address: [address] [place] [phone]- Care Team Related Persons Name: JAROCHO ZARATE Address: [address] [address] Name: DAPHNEY ZARATE Address: [address] [address] Name: DAPHNEY ZARATE Address: [address] [address]
--- OUTSIDE RECORDS SUMMARY | 2023-10-31 09:05 | XMS_ITS | Continuity of Care Document ---
Author Organization [facility] End[facility] Diabetes Address [address] [place] [address]- Care Team Providers Care Photoengraving Apprentice Name Role Phone Rae Kapadia DO Primary Care Physician Encounter [facility] Date(s): 02/13/21 - 03/15/21 [facility] Endocr[facility]ology and Diabetes [address] [place] [id number] Allergies, Adverse Reactions, Alerts No Known Medication Allergies Substance Reaction Severity Status Bananas angioedmea Active Immunizations Given and Recorded Vaccine Date Status Refusal Reason influenza virus vaccine, inactivated 1 04/18/17 Gi cullen 1Result Comment: [04/18/2017] [facility] 06141-376-65 Medications 530 G with enlite sensor and [...] Stop Date: 10/08/20 Status: Ordered Dexcom G6 bin tripper operator Dexcom G6 bin tripper operator, See Instructions, # 1 each, Refills 0, [...] (Max Dose =120 units/day). 10 mL vials. ID#[id number], # 100 mL, 2 Refills, Maintenance, 02/27/21 11:06:00 EDT,[facility], 170, cm, 12/20... Start [...] Compound Start Date: 05/13/14 Status: Ordered Pen [place], 31 G x 5 mm BD Ultra [...]
--- OUTSIDE RECORDS SUMMARY | 2023-10-31 09:05 | XMS_ITS | Continuity of Care Document ---
Author Organization [facility] Neal lt Address [address] [place] [address]- Care Team Providers Care Salon Stylist Name Role Phone Chandan ROTH, Elizabeth Javed Primary Care Physician [facility] Date(s): 09/30/23 - 10/30/23 [facility] Adult [address] [place] [address]- Allergies, Adverse Reactions, Alerts No Known Medication [...] influenza virus vaccine, inactivated 05/19/15 Alfred rded [id number] bivalent booster vax 05/15/22 Recorded SARS-CoV-2 (COVID-19) mRNA-1273 vaccine 09/26/20 R ecorded SARS-CoV-2 (COVID-19) mRNA-1273 vaccine 08/29/20 R ecorded Meningococcal Conjugate Vaccine 06/12/16 Recorded Hepatitis A Pediatric Vaccine 06/12/16 Recorded Hepatitis A Pediatric Vaccine 05/19/15 Recorded pneumococcal 23-valent vaccine 04/26/16 Recorded 1Result Comment: [04/18/2017] [facility] 45196-995-40 Medications 530 G with enlite sensor and [...] 13:42:12 Start Date: 07/17/15 Status: Ordered Shawn Transmit Contour Test Strips See Instructions, # 360 [...] Stop Date: 10/08/20 Status: Ordered Dexcom G6 forest firefighter Dexcom G6 forest firefighter, See Instructions, # 1 each, Refills 6, [...] units/day). 10 mL vials. 90 day supply ID#[id number], # 120 mL, 4 Refills, Maintenance, 03/28/2316:22:00 EDT, [facility],... Start Date: 03/28/23 Stop Date: 06/20/24 [...] Compound Start Date: 05/13/14 Status: Ordered Pen [place], 31 G x 5 mm BD Ultra Fine III See Instructions, # 100 Doses, Refills 6, Tot. Refills 6, Maintenance, use with insulin pen, 08/25/09 11:08:04, [facility] [address] Start Date: 08/25/09 Status: Ordered [...] Personnel Name: Chandan ROTH, Elizabeth Javed Position: [facility] PCO Associate Professional Member Role: PCP Address: Address: [address] [place] [id number]- [place] Care Team Related Persons Name: JAROCHO ZARATE Address: [address] [place] [address] Name: DAPHNEY ZARATE Address: [address] [place], [place] Name: DAPHNEY ZARATE Address: [address] [place] [address]
--- OUTSIDE RECORDS SUMMARY | 2023-10-31 09:05 | XMS_ITS | Continuity of Care Document ---
Author Organization [facility] Address [address] [place] [address]- Care Team Providers Care Laboratory Associate Name Role Phone Kang DORae Primary Care Physician [phone] Encounter [facility] Date(s): 03/14/20 - 04/13/20 [facility] Diabetes [address] [place] [id number] Allergies, Adverse Reactions, Alerts No Known Medication Allergies Substance Reaction Severity Status Bananas angioedmea Active Immunizations Given and Recorded Vaccine Date Status Refusal Reason influenza virus vaccine, inactivated 1 04/18/17 Gi cullen 1Result Comment: [04/18/2017] [facility] [id number] Medications 530 G with enlite sensor and [...] Stop Date: 10/08/20 Status: Ordered Dexcom G6 php developer Dexcom G6 php developer, See Instructions, # 1 each, Refills 0, [...] (Max Dose =120 units/day). 10 mL vials. ID#[id number], # 120 mL, 3 Refills, Maintenance, 12/17/19 9:33:00 EDT, [facility], 170, cm, ... Start Date: 12/17/19 Stop Date: 12/11/20 Status: Ordered Insulin Syringe, BD Ultra-Fine 0.3 cc 31 G x 8 mm (5/16in) See Instructions, # 100 Doses, Refills 6, Tot. Refills 6, Maintenance, dispense half unit syringes,08/25/09 11:07:30, [facility] Start Date: 08/25/09 Status: Ordered Ketostix [...] Compound Start Date: 05/13/14 Status: Ordered Pen [place], 31 G x 5 mm BD Ultra [...]
--- OUTSIDE RECORDS SUMMARY | 2023-10-31 09:05 | XMS_ITS | Continuity of Care Document ---
Author Organization [facility] Endocrinolo gy and Diabetes Address [address] [place] [address]- Care Team Providers Care Obedience Trainer Name Role Phone Chandan ROTH, Elizabeth Javed Primary Care Physician [facility] Date(s): 09/23/22 - 10/23/22 [facility] Diabetes [address] [place] [id number] Allergies, Adverse Reactions, Alerts [...] influenza virus vaccine, inactivated 05/19/15 Alfred rded [id number] bivalent booster vax 05/15/22 Recorded SARS-CoV-2 (COVID-19) mRNA-1273 vaccine 09/26/20 R ecorded SARS-CoV-2 (COVID-19) mRNA-1273 vaccine 08/29/20 R ecorded Meningococcal Conjugate Vaccine 06/12/16 Recorded Hepatitis A Pediatric Vaccine 06/12/16 Recorded Hepatitis A Pediatric Vaccine 05/19/15 Recorded pneumococcal 23-valent vaccine 04/26/16 Recorded 1Result Comment: [04/18/2017] [facility] 83847-162-10 Medications 530 G with enlite sensor and [...] 07/17/15 13:42:12 Start Date: 07/17/15 Status: Ordered LOOKK Contour Test Strips See Instructions, # 360 [...] Stop Date: 10/08/20 Status: Ordered Dexcom G6 police stenographer Dexcom G6 police stenographer, See Instructions, # 1 each, Refills 6, [...] units/day). 10 mL vials. 90 day supply ID#[id number], # 120 mL, 4 Refills, Maintenance, 09/04/2313:12:00 EDT, [facility],... Start Date: 09/04/22 Stop Date: 11/28/23 [...] Compound Start Date: 05/13/14 Status: Ordered Pen [place], 31 G x 5 mm BD Ultra Fine III See Instructions, # 100 Doses, Refills 6, Tot. Refills 6, Maintenance, use with insulin pen, 08/25/09 11:08:04, [facility] [address] Start Date: 08/25/09 Status: Ordered [...] Personnel Name: Chandan ROTH, Elizabeth Javed Position: [facility] PCO Associate Professional Member Role: PCP Address: Address: [address] [place] [address]- Care Team Related Persons Name: JAROCHO ZARATE Address: [address] [address] Name: DAPHNEY ZARATE Address: [address] [place], [place] Name: DAPHNEY ZARATE Address: [address] [address]
--- OUTSIDE RECORDS SUMMARY | 2023-10-31 09:05 | XMS_ITS | Continuity of Care Document ---
Author Organization [facility] Endocrinolo gy and Diabetes Address [address] [place] [address]- Care Team Providers Care Apple Picker Name Role Phone Rae Kapadia DO Primary Care Physician Encounter [facility] Date(s): 10/14/19 - 10/21/19 [facility] Endocrinology and Diabetes [address] [place] [address]- [facility] Attending Physician: Monik WALTERS Ibernst Referring Physician: Rae Kapadia DO Allergies, Adverse Reactions, Alerts No Known Medication Allergies Substance Reaction Severity Status Bananas angioedmea Active Immunizations Given and Recorded Vaccine Date Status Refusal Reason influenza virus vaccine, inactivated 1 04/18/17 Gi cullen 1Result Comment: [04/18/2017] [facility] 15906-568-99 Medications 530 G with enlite sensor and [...] Stop Date: 10/08/20 Status: Ordered Dexcom G6 java lead Dexcom G6 java lead, See Instructions, # 1 each, Refills 0, [...] for Diabetes mellitus type 1. (Max Dose =100 units/day). 10 mL vials. ID#[id number], # 9 each, 3 Refills, Maintenance, 12/16/18 8:43:23 EDT Start Date: 12/16/18 Stop Date: 12/11/19 Status: Ordered Insulin Syringe, BD Ultra-Fine 0.3 cc 31 G x 8 mm (10/22in) See Instructions, # 100 Doses, Refills 6, [...] Compound Start Date: 05/13/14 Status: Ordered Pen [place], 31 G x 5 mm BD Ultra Fine III See Instructions, # 100 Doses, Refills 6, Tot. Refills 6, Maintenance, use with insulin pen, 08/25/09 11:08:04, [facility] [place] Start Date: 08/25/09 Status: Ordered Spiriva [...]
--- OUTSIDE RECORDS SUMMARY | 2023-10-31 09:05 | XMS_ITS | Continuity of Care Document ---
Author Organization [facility] Endocrinolo gy and Diabetes Address [address] [place] [address]- Care Team Providers Care Social Service Worker Name Role Phone Chandan ROTH, Elizabeth Javed Primary Care Physician [facility] Date[facility]s): 09/03/22 - 10/03/22 [facility] Endocrinology and Diabetes [address] [place] [id number] Attending Physician: Admtr, Ar8 Admitting Physician: Admtr, [...] influenza virus vaccine, inactivated 05/19/15 Alfred rded [id number] bivalent booster vax 05/15/22 Recorded SARS-CoV-2 (COVID-19) mRNA-1273 vaccine 09/26/20 R ecorded SARS-CoV-2 (COVID-19) mRNA-1273 vaccine 08/29/20 R ecorded Meningococcal Conjugate Vaccine 06/12/16 Recorded Hepatitis A Pediatric Vaccine 06/12/16 Recorded Hepatitis A Pediatric Vaccine 05/19/15 Recorded pneumococcal 23-valent vaccine 04/26/16 Recorded 1Result Comment: [04/18/2017] [facility] 61235-547-18 Medications 530 G with enlite sensor and [...] 07/17/15 13:42:12 Start Date: 07/17/15 Status: Ordered Favbuy Contour Test Strips See Instructions, # 360 [...] Stop Date: 10/08/20 Status: Ordered Dexcom G6 laser/electro optics technician Dexcom G6 laser/electro optics technician, See Instructions, # 1 each, Refills [...] units/day). 10 mL vials. 90 day supply ID#[id number], # 120 mL, 4 Refills, Maintenance, 09/04/2313:12:00 EDT, [facility],... Start Date: 09/04/22 Stop Date: 11/28/23 [...] Compound Start Date: 05/13/14 Status: Ordered Pen [place], 31 G x 5 mm BD Ultra [...] 100 in lifetime) entered on: 09/13/21 Sex Note * Event Display: Non Lab Results Authored Date: [id number] Patient Care team information Care Team Personnel Name: Chandan ROTH, Elizabeth Javed Position: [facility] PCO Associate Professional Member Role: PCP Address: Address: [address] [place] [address]- Care Team Related Persons Name: JAROCHO ZARATE Address: [address] [place], [place] Name: DAPHNEY ZARATE Address: [address] [place], [place] Name: DAPHNEY ZARATE Address: [address]
--- OUTSIDE RECORDS SUMMARY | 2023-10-31 09:05 | XMS_ITS | Continuity of Care Document ---
Author Organization [facility] Endocrinolo gy and Diabetes Address [address] [place] [address]- Care Team Providers Care Tip Stretcher Name Role Phone Chandan ROTH, Elizabeth Javed Primary Care Physician [facility] Date(s): 09/04/22 - 10/04/[address] [facility] Endocrinology and Diabetes [address] [place] [id number] Allergies, Adverse Reactions, Alerts No Known Medication [...] influenza virus vaccine, inactivated 05/19/15 Alfred rded [id number] bivalent booster vax 05/15/22 Recorded SARS-CoV-2 (COVID-19) mRNA-1273 vaccine 09/26/20 R ecorded SARS-CoV-2 (COVID-19) mRNA-1273 vaccine 08/29/20 R ecorded Meningococcal Conjugate Vaccine 06/12/16 Recorded Hepatitis A Pediatric Vaccine 06/12/16 Recorded Hepatitis A Pediatric Vaccine 05/19/15 Recorded pneumococcal 23-valent vaccine 04/26/16 Recorded 1Result Comment: [04/18/2017] [facility] 32255-025-97 Medications 530 G with enlite sensor and [...] 07/17/15 13:42:12 Start Date: 07/17/15 Status: Ordered [place] Contour Test Strips See Instructions, # 360 [...] Stop Date: 10/08/20 Status: Ordered Dexcom G6 nut tapper Dexcom G6 nut tapper, See Instructions, # 1 each, Refills 6, [...] units/day). 10 mL vials. 90 day supply ID#[id number], # 120 mL, 4 Refills, Maintenance, 09/04/2313:12:00 EDT, [facility],... Start Date: 09/04/22 Stop Date: 11/28/23 [...] Compound Start Date: 05/13/14 Status: Ordered Pen [place], 31 G x 5 mm BD Ultra Fine III See Instructions, # 100 Doses, Refills 6, Tot. Refills 6, Maintenance, use with insulin pen, 08/25/09 11:08:04, [facility] [address] Start Date: 08/25/09 Status: Ordered [...] Personnel Name: Chandan ROTH, Elizabeth Javed Position: [facility] PCO Associate Professional Member Role: PCP Address: Address: [address] [place] [address]- Care Team Related Persons Name: JAROCHO ZARATE Address: [address] [address] Name: DAPHNEY ZARATE Address: [address] [place], [place] Name: DAPHNEY ZARATE Address: [address] [address]
--- OUTSIDE RECORDS SUMMARY | 2023-10-31 09:06 | XMS_ITS | Continuity of Care Document ---
Author Organization [facility] Endocrinolo gy and Diabetes Address [address] [place] [address]- Care Team Providers Care Wood Lather Name Role Phone Rae Kapadia DO Primary Care Physician [phone] Encounter [facility] Date(s): 03/26/21 - 04/25/21 [facility] Endocrinology and Diabetes [address] [place] [id number] Allergies, Adverse Reactions, Alerts No Known Medication Allergies Substance Reaction Severity Status Bananas angioedmea Active Immunizations Given and Recorded Vaccine Date Status Refusal Reason influenza virus vaccine, inactivated 1 04/18/17 Gi cullen 1Result Comment: [04/18/2017] [facility] 03078-535-07 Medications 530 G with enlite sensor and [...] 07/17/15 13:42:12 Start Date: 07/17/15 Status: Ordered [place] Ascensia Contour Test Strips See Instructions, # [...] Stop Date: 10/08/20 Status: Ordered Dexcom G6 deputy building guard Dexcom G6 deputy building guard, See Instructions, # 1 each, Refills 0, [...] (Max Dose =120 units/day). 10 mL vials. ID#[id number], # 100 mL, 2 Refills, Maintenance, 02/27/21 11:06:00 EDT,[facility], 170, cm, 12/20... Start Date: 02/27/21 Stop Date: 11/24/21 Status: Ordered Insulin Syringe, BD Ultra-Fine 0.3 cc 31 G x 8 mm (5/16in) See Instructions, # 100 Doses, Refills 6, Tot. Refills 6, Maintenance, dispense half unit syringes,08/25/09 11:07:30, [facility], [address] Start [...] Compound Start Date: 05/13/14 Status: Ordered Pen [place], 31 G x 5 mm BD Ultra [...]
--- OUTSIDE RECORDS SUMMARY | 2023-10-31 09:06 | XMS_ITS | Continuity of Care Document ---
Author Organization [facility] Dave Neal lt Address [address] [place] [address]- Care Team Providers Care Drywall Finisher Foreman Name Role Phone Chandan ROTH, Elizabeth Javed Primary Care Physician En[facility] Date(s): 09/29/23 - 10/06/23 [facility] [address] [place] [address]- Encounter Diagnosis Annual physical exam(Discharge Diagnosis) - 09/29/23 Asthma(Discharge Diagnosis) - 09/29/23 Diabetes mellitus type 1 with goal HbA1C below 7.5(Discharge Diagnosis) - 09/29/23 Severe obesity(Discharge Diagnosis) - 09/29/23 Attending Physician: Elizabeth Hawley NP Referring Physician: Jamie Lindsay MD Allergies, Adverse [...] influenza virus vaccine, inactivated 05/19/15 Alfred rded [id number] bivalent booster vax 05/15/22 Recorded SARS-CoV-2 (COVID-19) mRNA-1273 vaccine 09/26/20 R ecorded SARS-CoV-2 (COVID-19) mRNA-1273 vaccine 08/29/20 R ecorded Meningococcal Conjugate Vaccine 06/12/16 Recorded Hepatitis A Pediatric Vaccine 06/12/16 Recorded Hepatitis A Pediatric Vaccine 05/19/15 Recorded pneumococcal 23-valent vaccine 04/26/16 Recorded 1Result Comment: [04/18/2017] [facility] 32800-375-25 Medications 530 G with enlite sensor and [...] 13:42:12 Start Date: 07/17/15 Status: Ordered [employer] Contour Test Strips See Instructions, # 360 [...] Stop Date: 10/08/20 Status: Ordered Dexcom G6 cigar inspector Dexcom G6 cigar inspector, See Instructions, # 1 each, Refills 6, [...] units/day). 10 mL vials. 90 day supply ID#[id number], # 120 mL, 4 Refills, Maintenance, 03/28/2316:22:00 EDT, [facility],... Start Date: 03/28/23 Stop Date: 06/20/24 Status: Ordered Insulin Syringe, BD Ultra-Fine 0.3 cc 31 G x 8 mm (5/16in) See Instructions, # 100 Doses, Refills 6, Tot. Refills 6, Maintenance, dispense half unit syringes,08/25/09 11:07:30, [facility], [address] Start Date: 08/25/09 [...] 6 Refills, Maintenance, 03/15/22 16:45:00 EDT, Solution, [facility]/pharmacy #[id number], 170, cm, 03/15/22 15:11:00 EDT, Height [...] Compound Start Date: 05/13/14 Status: Ordered Pen [place], 31 G x 5 mm BD Ultra [...] Service Informant Annual physical exam Discharge Diagnosis 09/29/23 Asthma Discharge Diagnosis 09/29/23 Diabetes mellitus type 1 with goal HbA1C below 7.5 Discharge Diagnosis 09/29/23 Severe obesity Discharge Diagnosis 09/29/23 Vital Signs Most recent to oldest [Reference Range]: 1 Height 170.0 cm (09/29/23 2:01 PM) Weight 120.1 kg (09/29/23 2:01 PM) Oxygen Saturation [94-100 %] 98 % (09/29/23 2:01 PM) Pulse Rate [55-90 bpm] 92 bpm *H* (09/29/23 2:01 PM) Body Mass Index [18.5-24.99 kg/m2] 41.56 kg/m2 *>HHI* (09/29/23 2:01 PM) Blood Pressure [90-138/55-84 mm Hg] 116/ 76mm Hg (09/29/23 2:01 PM) Blood pressure sites Arm, left (09/29/23 2:01 PM) Weight Obtained Via Standing scale (09/29/23 2:01 PM) Social History Social History Type Response Smoking Status Never (less than 100 in lifetime) entered on: 09/13/21 Sex Note * Marielos Esquivel: PERFORM, SIGN, VERIFY Event Display: Patient Education/Instruction Authored Date: [id number] [facility] *BMP So Dave Guerrero Clinical Summary Name VERNELL ZARATE Age 23 Years 2000 PCP Chandan ROTH, Elizabeth Javed PCP Visit Date 09/29/2023 13:52:00 Additional Instructions: Scheduled Appointments?? Future Appointments ?*[facility] ?[address]??[place],??[place],??[address] ?Phone:??--?Fax:??-- ?Appt. Date:??12/22/2023?3:15 PM ?Scheduled Provider:??Charles ROTH, Kimi Ortiz Follow-Up Instructions ?? With: Address: When: Follow up, 1 Year for Physical Diagnosis Morbid (severe) obesity due to excess calories; Encounter for general adult medical examination without abnormal findings; Type 1 diabetes mellitus without complications; Unspecified asthma, uncomplicated Medications: Please continue your medications until treatment is completed or stopped by your provider. Discuss any questions related to medications with your provider. Medications to Continue with No Changes These medications were not printed or sent to your pharmacy Albuterol (albuterol CFC free 90 mcg/inh inhalation aerosol) 2 puff(s) Inhalation every 4 hours as needed for wheezing. Next Dose: ciclesonide nasal (Omnaris) 2 spray(s) Daily. Next Dose: Durable Medical Equipment (530 G with enlite sensor and supplies) dispense 530 G with Enlite sensorand supplies for type 1 diabetes. Refills: 0. Next Dose: Durable Medical Equipment (Medafor Ascensia Contour Test Strips) Use to check blood glucoselevels up to 4 times a day,E10.9. Refills: 6. Next Dose: Durable Medical Equipment (Contour Next EZ Test Strips) use as directed for Type 1 Diabetes Mellitus for 90 days. Refills: 3. Next Dose: Durable Medical Equipment (Dexcom G6 cigar inspector) IDDM use with Dexcom sensor. Refills: 6. Next Dose: Durable Medical Equipment (Glucagon Emergency Kit) use for t1dm. Refills: 5. Next Dose: Durable Medical Equipment (Glucagon Emergency Kit) Use as directed for type 1 diabetes PRN low blood glucose. Refills: 11. Next Dose: Durable Medical Equipment (Glucagon Emergency Kit) Use as directed for type 1 diabetes PRN severe low blood sugar. Refills: 11. Next Dose: Durable Medical Equipment (Glucagon Emergency Kit) use as directed for Type 1 Diabetes Mellitus; asneeded Blood Glucose. Refills: 3. Next Dose: Durable Medical Equipment (Insulin Syringe, BD Ultra-Fine 0.3 cc 31 G x 8 mm (5/16in)) See Instructions. dispense half unit syringes. Refills: 6. Next Dose: Durable Medical Equipment (Ketostix) use as directed for Type 1 Diabetes. Test if blood sugar is >300 x2, or if vomiting or illness. Max use 5x daily. Refills: 5. Next Dose: Durable Medical Equipment (One Touch Ultra Test Strips) use as directed for Type 1 Diabetes Mellitus. Test 7-8x/daily. Refills: 3. Next Dose: Durable Medical Equipment (Patient to use Medtronic 530g with enlite transmitters and sensors) Insulin pump and CGM for type 1 diabetes. Refills: 0. Next Dose: Durable Medical Equipment (Pen [place], 31 G x 5 mm BD Ultra Fine III) See Instructions. use with insulin pen. Refills: 6. Next Dose: Fexofenadine (Margoth) 180 Milligram Oral as needed Other. allergy. Next Dose: formoterol-mometasone (Dulera) Inhalation twice a day. Next Dose: Insulin Glargine (Lantus 100 u/ml subcutaneous solution) 10 unit(s) Subcutaneous Injection Daily. IDDM use one daily if pump fails. Max 50 units daily. Refills: 6. Next Dose: Insulin Lispro (Humalog 100 u/ml subcutaneous injection) Use as directed for Diabetes mellitus type1. (Max Dose = 120 units/day). 10 mL vials. 90 day supply ID#[id number]. Refills: 4. Next Dose: Miscellaneous Rx (Dexcom G6 sensors) IDDM, change every 10 days. 90 day supply. E10.65. Refills: 3. Next Dose: Miscellaneous Rx (Dexcom G6 transmitter) IDDM, change every 90 days. E10.65 90 day supply.. Refills: 3. Next Dose: Tiotropium (Spiriva) 18 Microgram Inhalation Daily. Next Dose: Allergy Info:?? No Known Medication Allergies; Bananas Medications Given This Visit Future Orders ?No future orders Future Orders ?Hemoglobin A1C (Monitoring)? Order Date:09/29/23?- Complete within?Comprehensive Metabolic Panel? Order Date:09/29/23?- Complete within? Vital Signs Height 170.0 cm Weight 120.1 kg BMI 41.56 kg/m2 Blood Pressure 116 mm Hg/76 mm Hg Temperature Pulse Rate 92 bpm Respiratory Rate 02 Sat Mode of Delivery 98 %/ You can now view a summary of your hospital visit from the comfort of your home through a free online portal called [employer]. [employer] is a website that allows you to securely view your medical information including discharge summary, medications and follow-up visits. ??You can alsosend a secure electronic message to your doctor???s office to request appointments, renew medications or just ask a question. You can enroll at [email or web address] or register during your next office visit. Disclaimer:?? The information provided is of a general nature and is intended to be used in conjunction with the recommendations and advice of your health care practitioner. ??Every effort has been made to ensure that the information provided is accurate and complete at the time it is provided to you however, as your needs change, or, as new ??information becomes available, different or additional instructions may be required. If you have questions, please consult with your primary care provider or pharmacist, as appropriate. ??This information is not intended to serve as substitution for assessment and evaluation by a qualified health care provider. If you do not have a primary care provider, you may find a [facility] provider by calling [facility] [employer] Link at [phone]. [facility], in keeping with [facility] guidance, no longer requires face masks for staff, patientsor visitors in most situations. Similar to time spent indoors at other locations, there is the chance that you were exposed to respiratory viruses during your time with us (such as flu or COVID-19).? If you develop symptoms concerning for a viral respiratory infection, please seek testing (and treatment if indicated) from your medical provider or home test kit. For information about the plan of care including goals and instructions for your diagnosis, please see the patient education orders section of this document. Patient Education Materials?? The content of this educational material or handout may have been modified, supplemented, or adapted from its original content and format to support your individualized medical care. Patient Care team information Care Team Personnel Name: Chandan ROTH, Elizabeth Javed Position: [facility] PCO Associate Professional Member Role: PCP Address: Address: [address] [place] [address]- Care Team Related Persons Name: JAROCHO ZARATE Address: [address] [address] Name: DAPHNEY ZARATE Address: [address] [address] Name: DAPHNEY ZARATE Address: [address] [address]
--- OUTSIDE RECORDS SUMMARY | 2023-10-31 09:06 | XMS_ITS | Continuity of Care Document ---
Author Organization [facility] Endocrinolo gy and Diabetes Address [address] [place] [address]- Care Team Providers Care Shorthand Reporter Name Role Phone Rae Kapadia DO Primary Care Physician [phone] En[place] [facility] [place] 10/15/19 - 12/17/19 [facility] Endocrinology and Diabetes [address] [place] [address]- [facility] Attending Physician: Kenny Ruggiero MD Admitting Physician: Monik WALTERS, Kenny Referring Physician: Rae Kapadia DO Allergies, Adverse Reactions, Alerts No Known Medication Allergies Substance Reaction Severity Status Bananas angioedmea Active Immunizations Given and Recorded Vaccine Date Status Refusal Reason influenza virus vaccine, inactivated 1 04/18/17 Gi cullen 1Result Comment: [04/18/2017] [facility] 38267-985-66 Medications 530 G with enlite sensor and [...] Stop Date: 10/08/20 Status: Ordered Dexcom G6 dredge captain Dexcom G6 dredge captain, See Instructions, # 1 each, Refills 0, [...] (Max Dose =120 units/day). 10 mL vials. ID#[id number], # 120 mL, 3 Refills, Maintenance, 12/17/19 9:33:00 EDT, [facility], 170, cm, ... Start Date: 12/17/19 Stop Date: 12/11/20 Status: Ordered Insulin Syringe, BD Ultra-Fine 0.3 cc 31 G x 8 mm (5/16in) See Instructions, # 100 Doses, Refills 6, Tot. Refills 6, Maintenance, dispense half unit syringes,08/25/09 11:07:30, [facility], [place], [address] Start Date: 08/25/09 Status: Ordered Ketostix [...] Compound Start Date: 05/13/14 Status: Ordered Pen [place], 31 G x 5 mm BD Ultra [...]
--- OUTSIDE RECORDS SUMMARY | 2023-10-31 09:06 | XMS_ITS | Continuity of Care Document ---
Author Organization [facility] Endocrinolo gy and Diabetes Address [address] [place] [address]- Care Team Providers Care Stencil Cutter Machine Name Role Phone Chandan ROTH, Elizabeth Javed Primary Care Physician [phone] Encounter [facility] Date(s): 12/30/22 - 01/29/23 [facility] Endocrinology and Diabetes [address] [place] [id number] Allergies, Adverse Reactions, Alerts No [...] influenza virus vaccine, inactivated 05/19/15 Alfred rded [id number] bivalent booster vax 05/15/22 Recorded SARS-CoV-2 (COVID-19) mRNA-1273 vaccine 09/26/20 R ecorded SARS-CoV-2 (COVID-19) mRNA-1273 vaccine 08/29/20 R ecorded Meningococcal Conjugate Vaccine 06/12/16 Recorded Hepatitis A Pediatric Vaccine 06/12/16 Recorded Hepatitis A Pediatric Vaccine 05/19/15 Recorded pneumococcal 23-valent vaccine 04/26/16 Recorded 1Result Comment: [04/18/2017] [facility] [id number] Medications 530 G with enlite sensor and [...] 13:42:12 Start Date: 07/17/15 Status: Ordered Shawn MartMania Contour Test Strips See Instructions, # 360 [...] Stop Date: 10/08/20 Status: Ordered Dexcom G6 gyn physician Dexcom G6 gyn physician, See Instructions, # 1 each, Refills 6, [...] units/day). 10 mL vials. 90 day supply ID#[id number], # 120 mL, 4 Refills, Maintenance, 09/04/2313:12:00 EDT, [facility],... Start Date: 09/04/22 Stop Date: [...] Compound Start Date: 05/13/14 Status: Ordered Pen [place], 31 G x 5 mm BD Ultra Fine III See Instructions, # 100 Doses, Refills 6, Tot. Refills 6, Maintenance, use with insulin pen, 08/25/09 11:08:04[facility] [address] Start Date: 08/25/09 Status: Ordered [...] Personnel Name: Chandan ROTH, Elizabeth Javed Position: [facility] PCO Associate Professional Member Role: PCP Address: Address: [address] [place] [address]- Care Team Related Persons Name: JAROCHO ZARATE Address: [address] [place] [address] Name: DAPHNEY ZARATE Address: [address] [place], [place] Name: DAPHNEY ZARATE Address: [address] [place] [address]
--- OUTSIDE RECORDS SUMMARY | 2023-10-31 09:06 | XMS_ITS | Continuity of Care Document ---
Author Organization [facility] Endocrinolo gy and Diabetes Address [address] [place] [address]- Care Team Providers Care Director Of Procurement Name Role Phone Chandan ROTH, Elizabeth Javed Primary Care Physician [phone] Encounter [facility] Date(s): 06/27/22 - 07/27/22 [facility] Endocrinology and Diabetes [address] [place] [id number] Allergies, Adverse Reactions, Alerts [...] 23-valent vaccine 04/26/16 Recorded 1Result Comment: [04/18/2017] [facility] [id number] Medications 530 G with enlite sensor and [...] 07/17/15 13:42:12 Start Date: 07/17/15 Status: Ordered Materialise Contour Test Strips See Instructions, # 360 [...] Stop Date: 10/08/20 Status: Ordered Dexcom G6 call out operator Dexcom G6 call out operator, See Instructions, # 1 each, Refills [...] units/day). 10 mL vials. 90 day supply ID#[id number], # 120 mL, 4 Refills, Maintenance, 06/27/2311:16:00 EST, [facility],... Start Date: 06/27/22 Stop Date: 09/20/23 Status: Ordered Insulin Syringe, BD Ultra-Fine 0.3 cc 31 G x 8 mm (5/16in) See Instructions, # 100 Doses, Refills 6, Tot. Refills 6, Maintenance, dispense half unit syringes,08/25/09 11:07:30, [facility], [address] Start Date: 08/25/09 Status: [...] 6 Refills, Maintenance, 03/15/22 16:45:00 EDT, Solution, [facility]/pharmacy #[id number], 170, cm, 03/15/22 15:11:00 EDT, Height [...] Compound Start Date: 05/13/14 Status: Ordered Pen [place], 31 G x 5 mm BD Ultra [...] Personnel Name: Chandan ROTH, Elizabeth Javed Position: [facility] PCO Associate Professional Member Role: PCP Address: Address: [address] [place] [address]- Care Team Related Persons Name: JAROCHO ZARATE Address: [address] Name: DAPHNEY ZARATE Address: [address] Name: DAPHNEY ZARATE Address: [address]
--- OUTSIDE RECORDS SUMMARY | 2023-10-31 09:06 | XMS_ITS | Continuity of Care Document ---
Author Organization [facility] Endocrinolo gy and Diabetes Address [address] [place] [address]- Care Team Providers Care Drop Worker Name Role Phone Rae Kapadia DO Primary Care Physician Encounter [facility] Date(s): 02/13/21 - 03/15/21 [facility] Endocrinology and Diabetes [address] [place] [id number] Allergies, Adverse Reactions, Alerts No Known Medication Allergies Substance Reaction Severity Status Bananas angioedmea Active Immunizations Given and Recorded Vaccine Date Status Refusal Reason influenza virus vaccine, inactivated 1 04/18/17 Gi cullen 1Result Comment: [04/18/2017] [facility] 23325-629-72 Medications 530 G with enlite sensor and [...] Stop Date: 10/08/20 Status: Ordered Dexcom G6 director report Dexcom G6 director report, See Instructions, # 1 each, Refills 0, [...] (Max Dose =120 units/day). 10 mL vials. ID#[id number], # 100 mL, 2 Refills, Maintenance, 02/27/21 11:06:00 EDT,[facility], 170, cm, 12/20... Start Date: 02/27/21 Stop Date: 11/24/21 Status: Ordered Insulin Syringe, BD Ultra-Fine 0.3 cc 31 G x 8 mm (5/16in) See Instructions, # 100 Doses, Refills 6, Tot. Refills 6, Maintenance, dispense half unit syringes,08/25/09 11:07:30, [facility], [address] Start Date: 08/25/09 Status: Ordered Ketostix [...] Compound Start Date: 05/13/14 Status: Ordered Pen [place], 31 G x 5 mm BD Ultra [...]
--- OUTSIDE RECORDS SUMMARY | 2023-10-31 09:06 | XMS_ITS | Continuity of Care Document ---
Author Organization [facility] Address [address] [place] [address]- Care Team Providers Care Examiner Of Currency Name Role Phone Rae Kapadia DO Primary Care Physician Encounter [facility] Date(s): 09/01/20 - 10/26/[address] [id number] Attending Physician: Kenny Ruggiero MD Admitting Physician: Kenny Ruggiero MD Referring Physician: Rae Kapadia DO Allergies, Adverse Reactions, Alerts No Known Medication Allergies Substance Reaction Severity Status Bananas angioedmea Active Immunizations Given and Recorded Vaccine Date Status Refusal Reason influenza virus vaccine, inactivated 1 04/18/17 Gi cullen 1Result Comment: [04/18/2017] [facility] 60225-090-40 Medications 530 G with enlite sensor and [...] Maintenance, Aerosol Start Date: 07/31/09 Status: Ordered Magroth = 180 mg, By Mouth, PRN Other, [...] Stop Date: 10/08/20 Status: Ordered Dexcom G6 dairy products maker Dexcom G6 dairy products maker, See Instructions, # 1 each, Refills 0, [...] (Max Dose =120 units/day). 10 mL vials. ID#[id number], # 120 mL, 3 Refills, Maintenance, 12/17/19 9:33:00 EDT, [facility], 170, cm, ... Start Date: 12/17/19 Stop Date: 12/11/20 Status: Ordered Insulin Syringe, BD Ultra-Fine 0.3 cc 31 G x 8 mm (5/16in) See Instructions, # 100 Doses, Refills 6, Tot. Refills 6, Maintenance, dispense half unit syringes,08/25/09 11:07:30, [facility] [place], [address] Start Date: 08/25/09 Status: Ordered Ketostix [...] Compound Start Date: 05/13/14 Status: Ordered Pen [place], 31 G x 5 mm BD Ultra [...]
--- OUTSIDE RECORDS SUMMARY | 2023-10-31 09:06 | XMS_ITS | Continuity of Care Document ---
Author Organization [facility] Endocrinolo gy and Diabetes Address [address] [place] [address]- Care Team Providers Care Burring Machine Operator Name Role Phone Rae Kapadia DO Primary Care Physician [phone] Encounter [facility] Date(s): 02/02/21 - 03/04/21 [facility] Endocrinology and Diabetes [address] [place] [id number] Allergies, Adverse Reactions, Alerts No Known Medication Allergies Substance Reaction Severity Status Bananas angioedmea Active Immunizations Given and Recorded Vaccine Date Status Refusal Reason influenza virus vaccine, inactivated 1 04/18/17 Gi cullen 1Result Comment: [04/18/2017] [facility] 06445-565-80 Medications 530 G with enlite sensor and [...] Stop Date: 10/08/20 Status: Ordered Dexcom G6 used car make ready mechanic Dexcom G6 used car make ready mechanic, See Instructions, # 1 each, Refills 0, [...] (Max Dose =120 units/day). 10 mL vials. ID#[id number], # 100 mL, 2 Refills, Maintenance, 02/27/21 11:06:00 EDT,[facility], 170, cm, 12/20... Start Date: [...] Compound Start Date: 05/13/14 Status: Ordered Pen [place], 31 G x 5 mm BD Ultra [...]
--- OUTSIDE RECORDS SUMMARY | 2023-10-31 09:06 | XMS_ITS | Continuity of Care Document ---
Author Organization [facility] Endocrinolo gy and Diabetes Address [address] [place] [address]- Care Team Providers Care Senior Civil Engineer Name Role Phone Rae Kapadia DO Primary Care Physician [facility] Date(s): 07/02/19 - 10/30/19 [facility] Endocrinology and Diabetes [address] [place] [address]- [facility] Attending Physician: Kenny Ruggiero MD Admitting Physician: Kenny Ruggiero MD Referring Physician: aRe Kapadia DO Allergies, Adverse Reactions, Alerts No Known Medication Allergies Substance Reaction Severity Status Bananas angioedmea Active Immunizations Given and Recorded Vaccine Date Status Refusal Reason influenza virus vaccine, inactivated 1 04/18/17 Gi cullen 1Result Comment: [04/18/2017] [facility] 78145-565-91 Medications 530 G with enlite sensor and [...] 13:42:12 Start Date: 07/17/15 Status: Ordered Shawn EdRoverensia Contour Test Strips See Instructions, # 360 [...] Stop Date: 10/08/20 Status: Ordered Dexcom G6 steward/stewardess deck Dexcom G6 steward/stewardess deck, See Instructions, # 1 each, Refills 0, [...] (Max Dose =100 units/day). 10 mL vials. ID#[id number], # 9 each, 3 Refills, Maintenance, 12/16/18 [...] Compound Start Date: 05/13/14 Status: Ordered Pen [place], 31 G x 5 mm BD Ultra Fine III See Instructions, # 100 Doses, Refills 6, Tot. Refills 6, Maintenance, use with insulin pen, 08/25/09 11:08:04, [facility] [place] Start Date: 08/25/09 Status: Ordered Spiriva [...]
--- OUTSIDE RECORDS SUMMARY | 2023-10-31 09:06 | XMS_ITS | Continuity of Care Document ---
Author Organization [facility] Address [address] [place] [address]- Care Team Providers Care Hoop Rolls Operator Name Role Phone Chandan ROTH, Elizabeth Javed Primary Care Physician [phone] Encounter [facility] Date(s): 09/13/21 - 09/20/21 [facility] [address] [place] [address]- Encounter Diagnosis Diabetes mellitus type 1 with goal HbA1C below 7.5(Discharge Diagnosis) - 09/13/21 Asthma(Discharge Diagnosis) - 09/13/21 Annual physical exam(Discharge Diagnosis) - 09/13/21 Thyroid nodule(Discharge Diagnosis) - 09/13/21 Attending Physician: Not on Staff, Attending MD Allergies, Adverse Reactions, Alerts No Known [...] 23-valent vaccine 04/26/16 Recorded 1Result Comment: [04/18/2017] [facility] 28017-562-59 Medications 530 G with enlite sensor and [...] 07/17/15 13:42:12 Start Date: 07/17/15 Status: Ordered Fibroblast Contour Test Strips See Instructions, # 360 [...] Stop Date: 10/08/20 Status: Ordered Dexcom G6 recreation activities coordinator Dexcom G6 recreation activities coordinator, See Instructions, # 1 each, Refills 0, [...] (Max Dose =120 units/day). 10 mL vials. ID#[id number], # 100 mL, 2 Refills, Maintenance, 02/27/21 11:06:00 EDT,[facility], 170, cm, 12/20... Start Date: 02/27/21 Stop Date: 11/24/21 Status: Ordered Insulin Syringe, BD Ultra-Fine 0.3 cc 31 G x 8 mm (5/16in) See Instructions, # 100 Doses, Refills 6, Tot. Refills 6, Maintenance, dispense half unit syringes,08/25/09 11:07:30, [facility], [address] Start [...] Compound Start Date: 05/13/14 Status: Ordered Pen [place], 31 G x 5 mm BD Ultra [...] wit h goal HbA1C below 7.5(Confirmed) Active Diagnosis Diagnosis Type Effective Dates Health Status Cl inical Service Informant Diabetes mellitus type 1 with goal HbA1C below 7.5 Discharge Diagnosis 09/13/21 Asthma Discharge Diagnosis 09/13/21 Annual physical exam Discharge Diagnosis 09/13/21 Thyroid nodule Discharge Diagnosis 09/13/21 Vital Signs Most recent to oldest [Reference Range]: 1 Height 170.0 cm (09/13/21 9:32 AM) Weight 110.2 kg (09/13/21 9:32 AM) Oxygen Saturation [94-100 %] 98 % (09/13/21 9:32 AM) Pulse Rate [55-90 bpm] 93 bpm *H* (09/13/21 9:32 AM) Body Mass Index [18.5-24.99] 38.13 *>HHI* (09/13/21 9:32 AM) Blood Pressure [90-138/55-84 mm Hg] 116/ 76mm Hg (09/13/21 9:32 AM) Temperature [96.8-100.4 DegF] 98.3 DegF (09/13/21 9:32 AM) Blood pressure sites Arm, left (09/13/21 9:32 AM) Temperature Route Temporal (09/13/21 9:32 AM) Weight Obtained Via Standing scale (09/13/21 9:32 AM) Social History Social History Type Response Smoking Status Never (less than 100 in lifetime) entered on: 09/13/21 Sex
--- OUTSIDE RECORDS SUMMARY | 2023-10-31 09:06 | XMS_ITS | Continuity of Care Document ---
Author Organization [facility] Endocrinolo gy and Diabetes Address [address] [place] [address]- Care Team Providers Care Leak Inspector Name Role Phone Chandan ROTH, Elizabeth Javed Primary Care Physician [facility] Date(s): 03/28/23 - 04/27/23 [facility] Endocrinology and Diabetes [address] [place] [id number] Attending Physician: Admtr, Ar8 Admitting [...] influenza virus vaccine, inactivated 05/19/15 Alfred rded [id number] bivalent booster vax 05/15/22 Recorded SARS-CoV-2 (COVID-19) mRNA-1273 vaccine 09/26/20 R ecorded SARS-CoV-2 (COVID-19) mRNA-1273 vaccine 08/29/20 R ecorded Meningococcal Conjugate Vaccine 06/12/16 Recorded Hepatitis A Pediatric Vaccine 06/12/16 Recorded Hepatitis A Pediatric Vaccine 05/19/15 Recorded pneumococcal 23-valent vaccine 04/26/16 Recorded 1Result Comment: [04/18/2017] [facility] 47315-806-58 Medications 530 G with enlite sensor and [...] 07/17/15 13:42:12 Start Date: 07/17/15 Status: Ordered [place] Contour Test Strips See Instructions, # 360 [...] Stop Date: 10/08/20 Status: Ordered Dexcom G6 automotive internet sales manager Dexcom G6 automotive internet sales manager, See Instructions, # 1 each, Refills 6, [...] units/day). 10 mL vials. 90 day supply ID#[id number], # 120 mL, 4 Refills, Maintenance, 03/28/2316:22:00 EDT, [facility],... Start Date: 03/28/23 Stop Date: [...] Compound Start Date: 05/13/14 Status: Ordered Pen [place], 31 G x 5 mm BD Ultra [...] 100 in lifetime) entered on: 09/13/21 Sex Laboratory * Event Display: Non Lab Results Authored Date: [id number] Patient Care team information Care Team Personnel Name: Chandan ROTH, Elizabeth Javed Position: [facility] PCO Associate Professional Member Role: PCP Address: Address: [address] [place] [address]- Care Team Related Persons Name: JAROCHO ZARATE Address: [address] [place], [place] Name: DAPHNEY ZARATE Address: [address] [place], [place] Name: DAPHNEY ZARATE Address: [address]
--- OUTSIDE RECORDS SUMMARY | 2023-10-31 09:06 | XMS_ITS | Continuity of Care Document ---
Author Organization [facility] Endocrinolo gy and Diabetes Address [address] [place] [address]- Care Team Providers Care Steam Tender Name Role Phone Chandan ROTH, Elizabeth Javed Primary Care Physician [facility] Date(s): 12/19/21 - 01/18/22 [facility] Endocrinology and Diabetes [address] [place] [id number] Allergies, Adverse Reactions, Alerts No [...] Recorded 1Result Comment: [04/18/2017] [facility] 53138-577-62 Medications 530 G with enlite sensor and [...] 07/17/15 13:42:12 Start Date: 07/17/15 Status: Ordered [employer] Contour Test Strips See Instructions, # 360 [...] Stop Date: 10/08/20 Status: Ordered Dexcom G6 resourcing consultant Dexcom G6 resourcing consultant, See Instructions, # 1 each, Refills 0, [...] (Max Dose =120 units/day). 10 mL vials. ID#[id number], # 100 mL, 2 Refills, Maintenance, 12/19/21 11:58:00 EDT,[facility], 170, cm, 10/04... Start Date: 12/19/21 Stop Date: 09/15/22 Status: Ordered Insulin Syringe, BD Ultra-Fine 0.3 cc 31 G x 8 mm (5/16in) See Instructions, # 100 Doses, Refills 6, Tot. Refills 6, Maintenance, dispense half unit syringes,08/25/09 11:07:30, [facility], [address] Start Date: 08/25/09 [...] Compound Start Date: 05/13/14 Status: Ordered Pen [place], 31 G x 5 mm BD Ultra [...]
--- OUTSIDE RECORDS SUMMARY | 2023-10-31 09:06 | XMS_ITS | Continuity of Care Document ---
Author Organization [facility] Endocrinolo gy and Diabetes Address [address] [place] [address]- Care Team Providers Care Assistant Fitness Manager Name Role Phone Chandan ROTH, Elizabeth Javed Primary Care Physician [facility] Date(s): 02/12/23 - 03/14/23 [facility] Endocrinology and Diabetes [address] [place] [id number] Allergies, Adverse Reactions, Alerts No [...] influenza virus vaccine, inactivated 05/19/15 Alfred rded [id number] bivalent booster vax 05/15/22 Recorded SARS-CoV-2 (COVID-19) mRNA-1273 vaccine 09/26/20 R ecorded SARS-CoV-2 (COVID-19) mRNA-1273 vaccine 08/29/20 R ecorded Meningococcal Conjugate Vaccine 06/12/16 Recorded Hepatitis A Pediatric Vaccine 06/12/16 Recorded Hepatitis A Pediatric Vaccine 05/19/15 Recorded pneumococcal 23-valent vaccine 04/26/16 Recorded 1Result Comment: [04/18/2017] [facility] 90499-098-82 Medications 530 G with enlite sensor and [...] 07/17/15 13:42:12 Start Date: 07/17/15 Status: Ordered [employer] Contour Test Strips See Instructions, # [...] Stop Date: 10/08/20 Status: Ordered Dexcom G6 clay miller Dexcom G6 clay miller, See Instructions, # 1 each, Refills 6, [...] units/day). 10 mL vials. 90 day supply ID#[id number], # 120 mL, 4 Refills, Maintenance, 09/04/2313:12:00 EDT, [facility],... Start Date: 09/04/22 Stop Date: [...] Compound Start Date: 05/13/14 Status: Ordered Pen [place], 31 G x 5 mm BD Ultra Fine III See Instructions, # 100 Doses, Refills 6, Tot. Refills 6, Maintenance, use with insulin pen, 08/25/09 11:08:04[facility] [address] Start Date: 08/25/09 Status: Ordered [...] Personnel Name: Chandan ROTH, Elizabeth Javed Position: [facility] PCO Associate Professional Member Role: PCP Address: Address: [address] [place] [address]- Care Team Related Persons Name: JAROCHO ZARATE Address: [address] [address] Name: DAPHNEY ZARATE Address: [place] [address] [place], [place] Name: DAPHNEY ZARATE Address: [address] [address]
--- OUTSIDE RECORDS SUMMARY | 2023-10-31 09:06 | XMS_ITS | Continuity of Care Document ---
Author Organization [facility] Endocrinolo gy and Diabetes Address [address] [place] [address]- Care Team Providers Care Talent Acquisition Operations Manager Name Role Phone Chandan ROTH, Elizabeth Javed Primary Care Physician [facility] Date(s): 04/01/22 - 05/01/22 [facility] Endocrinology and Diabetes [address] [place] [id number] Allergies, Adverse Reactions, Alerts No [...] 23-valent vaccine 04/26/16 Recorded 1Result Comment: [04/18/2017] [facility] 82563-014-62 Medications 530 G with enlite sensor and [...] 07/17/15 13:42:12 Start Date: 07/17/15 Status: Ordered [employer] Contour Test Strips See Instructions, # 360 [...] Stop Date: 10/08/20 Status: Ordered Dexcom G6 driver material handler Dexcom G6 driver material handler, See Instructions, # 1 each, Refills 6, [...] (Max Dose =120 units/day). 10 mL vials. ID#[id number], # 100 mL, 6 Refills, Maintenance, 04/01/22 15:06:00 EDT,[facility]/pharmacy #[id number], 170, cm, 03/15/22 15:11:00 ED... Start Date: 04/01/22 Stop Date: 12/22/23 Status: Ordered Insulin Syringe, BD Ultra-Fine 0.3 [...] 6 Refills, Maintenance, 03/15/22 16:45:00 EDT, Solution, [facility]/pharmacy #2339, 170, cm, 03/15/22 15:11:00 EDT, [...] Compound Start Date: 05/13/14 Status: Ordered Pen [place], 31 G x 5 mm BD Ultra [...] Personnel Name: Chandan ROTH, Elizabeth Javed [facility] Associate Professional Member Role: PCP Address: Address: [address] [place] [address]- Care Team Related Persons Name: JAROCHO ZARATE Address: [address] [place], [place] Name: DAPHNEY ZARATE Address: [address] [place], [place] Name: DAPHNEY ZARATE Address: [address] [place], [place]
--- OUTSIDE RECORDS SUMMARY | 2023-10-31 09:06 | XMS_ITS | Continuity of Care Document ---
Author Organization [facility] Endocrinolo gy and Diabetes Address [address] [place] [address]- Care Team Providers Care Computer Forensics Examiner Name Role Phone Rae Kapadia DO Primary Care Physician [place] [facility] Date(s): 02/13/21 - 03/15/21 [facility]ocr[facility] Diabetes [address] [place] [id number] Allergies, Adverse Reactions, Alerts No Known Medication Allergies Substance Reaction Severity Status Bananas angioedmea Active Immunizations Given and Recorded Vaccine Date Status Refusal Reason influenza virus vaccine, inactivated 1 04/18/17 Gi cullen 1Result Comment: [04/18/2017] [facility] 78289-665-10 Medications 530 G with enlite sensor and [...] Stop Date: 10/08/20 Status: Ordered Dexcom G6 clinical product manager Dexcom G6 clinical product manager, See Instructions, # 1 each, Refills 0, [...] (Max Dose =120 units/day). 10 mL vials. ID#[id number], # 100 mL, 2 Refills, Maintenance, 02/27/21 11:06:00 EDT,[facility], 170, cm, 12/20... Start Date: [...] Compound Start Date: 05/13/14 Status: Ordered Pen [place], 31 G x 5 mm BD Ultra [...]
--- OUTSIDE RECORDS SUMMARY | 2023-10-31 09:06 | XMS_ITS | Continuity of Care Document ---
Author Organization [facility] Address [address] [place] [address]- Care Team Providers Care Energy Sales Broker Name Role Phone Rae Kapadia DO Primary Care Physician Encounter [facility] Date(s): 09/30/19 - 10/07/19 [facility] [address] [place] [id number]- [facility] Attending Physician: Monik WALTERS, Kenny Referring Physician: Rae Kapadia DO Allergies, Adverse Reactions, Alerts No Known Medication Allergies Substance Reaction Severity Status Bananas angioedmea Active Immunizations Given and Recorded Vaccine Date Status Refusal Reason influenza virus vaccine, inactivated 1 04/18/17 Gi cullen 1Result Comment: [04/18/2017] [facility] [id number] Medications 530 G with enlite sensor and [...] Dry Weight Start Date: 10/01/19 Status: Ordered Dexcom G6 receiver stocker Dexcom G6 receiver stocker, See Instructions, # 1 each, Refills 0, [...] (Max Dose =100 units/day). 10 mL vials. ID#[id number], # 9 each, 3 Refills, Maintenance, 12/16/18 8:43:23 EDT Start Date: 12/16/18 Stop Date: 12/11/19 Status: Ordered Insulin Syringe, BD Ultra-Fine 0.3 cc 31 G x 8 mm (5/16in) See Instructions, # 100 Doses, Refills 6, Tot. Refills 6, Maintenance, dispense half unit syringes,08/25/09 11:07:30, [facility] [place], [address] Start Date: 08/25/09 Status: Ordered Ketostix [...] Compound Start Date: 05/13/14 Status: Ordered Pen [place], 31 G x 5 mm BD Ultra [...]
--- OUTSIDE RECORDS SUMMARY | 2023-10-31 09:06 | XMS_ITS | Continuity of Care Document ---
Author Organization [facility] Address [address] [place] [id number]- Care Team Providers Care Pediatric Geneticist Name Role Phone Chandan ROTH, Elizabeth Javed Primary Care Physician Encounter [facility] Date(s): 06/27/22 - 07/27/22 [facility] [address] [place] [id number] Allergies, Adverse Reactions, Alerts No [...] Gi cullen influenza virus vaccine, inactivated 04/26/16 Aflred rded influenza virus vaccine, inactivated 05/19/15 Alfred rded SARS-CoV-2 (COVID-19) mRNA-1273 vaccine 09/26/20 R ecorded SARS-CoV-2 (COVID-19) mRNA-1273 vaccine 08/29/20 R ecorded Meningococcal Conjugate Vaccine 06/12/16 Recorded Hepatitis A Pediatric Vaccine 06/12/16 Recorded Hepatitis A Pediatric Vaccine 05/19/15 Recorded pneumococcal 23-valent vaccine 04/26/16 Recorded 1Result Comment: [04/18/2017] [facility] [id number] Medications 530 G with enlite sensor and [...] 07/17/15 13:42:12 Start Date: 07/17/15 Status: Ordered [employer] Contour Test Strips See Instructions, # 360 [...] Stop Date: 10/08/20 Status: Ordered Dexcom G6 derrick boat lever operator Dexcom G6 derrick boat lever operator, See Instructions, # 1 each, Refills [...] units/day). 10 mL vials. 90 day supply ID#[id number], # 120 mL, 4 Refills, Maintenance, 06/27/2311:16:00 EST, [facility],... Start Date: 06/27/22 Stop Date: 09/20/23 Status: Ordered Insulin Syringe, BD Ultra-Fine 0.3 cc 31 G x 8 mm (5/16in) See Instructions, # 100 Doses, Refills 6, Tot. Refills 6, Maintenance, dispense half unit syringes,08/25/09 11:07:30, [facility], [address] Start Date: 08/25/09 Status: [...] Refills, Maintenance, 03/15/22 16:45:00 EDT, Solution, [facility]/pharmacy #[id number], 170, cm, 03/15/22 15:11:00 EDT, Height [...] Compound Start Date: 05/13/14 Status: Ordered Pen [place], 31 G x 5 mm BD Ultra [...] Personnel Name: Chandan ROTH, Elizabeth Javed Position: [facility] PCO Associate Professional Member Role: PCP Address: Address: [address] [place] [id number]- Care Team Related Persons Name: JAROCHO ZARATE Address: home [address], [place] Name: DAPHNEY ZARATE Address: home [address], [place] Name: DAPHNEY ZARATE Address: [address]
[2023-10-31 09:17] VITALS: BP 120/74; PULSE 97; TEMP 36.8; O2SAT 100; BMI 40.7
--- NOTE | 2023-10-31 09:17 | MHC.OFFWIV ---
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 Reports difficulty with swallowing. Reports body aches and chills. PFSH Social History Patient Tobacco Use Status: Never used Tobacco Review of Systems Const All systems reviewed & are unremarkable except as noted in HPI and below Physical Exam Vital Signs: Last Vital Signs Temp 98.3 F 10/31/23 09:17 Pulse 97 10/31/23 09:17 BP 120/74 10/31/23 09:17 Pulse Ox 100 10/31/23 09:17 BMI result Body Mass Index 40.7 Const General: comfortable and no acute distress Nutritional Appearance: obese Orientation/consciousness: patient oriented x3 HEENT Head: Yes normocephalic Ears: external ears normal and TM abnormal with fluid behind the TM bilateral General nose exam: Normal nasal mucous membranes and turbinates present Face and sinus: Yes sinuses nontender Mouth: moist mucous membranes Throat: Yes uvula midline, Yes abnormal tonsil (Enlarged Tonsils +3 ) and Yes postnasal drainage Resp Effort & Inspection: normal respiratory effort and able to speak in complete sentences Auscultation: clear to auscultation bilaterally, no crackles, no rales, no rhonchi and no wheezes Cardio Rate: regular rate Rhythm: regular rhythm Neuro General: patient oriented x3 Results AMB Rapid Strep AMB Rapid Strep Positive Last Edit by Hans Alvares CMA on 10/31/23 09:46 Results Reviewed Results Reviewed: Laboratory Last Values Strep Scn Rapid Clinic Positive 10/31/23 09:46 Assessment & Plan Assessment & Plan (1) Acute streptococcal pharyngitis: Code(s): J02.0 - Streptococcal pharyngitis Plan: - OTC sore/throat remedies -Warm fluids with honey - Rest - Acetaminophen for pain relief Orders: Orders AMB Rapid Strep Screen Today Z13.9 - Encounter for screening, unspecified Medications: New penicillin V potassium 500 mg PO TID 30 tabs 0RF 10 days J02.0 - Streptococcal pharyngitis prednisone 50 mg PO DAILY 5 tabs 0RF 5 days J02.0 - Streptococcal pharyngitis Coding Level of Care Code Est Pt Level 3 (37057) Diagnoses Acute streptococcal pharyngitis J02.0 Time Spent (min) 15
== END 2023-10-31 10:12 | disposition home or self-care (01) ==
PROVIDERS: PCP Pediatrics; Visit Provider Nurse Practitioner Family
DX: J02.0 Streptococcal pharyngitis (principal)
CPT/HCPCS: 87880; 99213

== ENCOUNTER 2024-04-21 15:21 | Outpatient (AMB) | payer BC, SELFPAY ==
[2024-04-21 15:27] VITALS: BP 118/70; PULSE 92; TEMP 36.8; O2SAT 98
--- NOTE | 2024-04-21 15:27 | AM.OFFWIN_ITS ---
Intake Vital Signs 04/21/24 15:27 Height 5 ft 7 in BP 118/70 Blood Pressure Location Rt brachial Position Sitting Pulse 92 Pulse Source Pulse Oximeter Temp 98.3 F Temp Source Oral Pulse Oximetry (%) 98 Intake Visit Reasons: EP pain & white spot on left tonsil Intake Note: pt is here for c/o white spot on tonsil Patient Tobacco Use Status: Never used Tobacco Allergies No Known Allergies Allergy (Verified 04/21/24 15:27) Do you need a note to return to daycare/school/sports/work: No HPI EP pain & white spot on left tonsil HPI Details This note is constructed using voice recognition software. While every effort has been made to ensure accuracy, rug dry room attendant errors may have been included. The patient is a 23 year old female who presents to the clinic today with ?white spot on her left tonsil?. She reports that she has had this there for the past week, it covers nearly her entire tonsil. She does have a longstanding history of allergies, and is currently treating them. She also had a longstanding history of enlarged tonsils, but has not seen a specialist for this. She denies fever, chills, cough, shortness of breath. She reports she can feel tenderness on the outside of her tonsils, but denies pharyngitis. [facility], [facility] Social History Patient Tobacco Use Status: Never used Tobacco Review of Systems Const All systems reviewed & are unremarkable except as noted in HPI and below Physical Exam Vital Signs: Last Vital Signs Temp 98.3 F 04/21/24 15:27 Pulse 92 04/21/24 15:27 BP 118/70 04/21/24 15:27 Pulse Ox 98 04/21/24 15:27 Const General: cooperative, healthy appearing, comfortable and no acute distress Orientation/consciousness: patient oriented x3 Limitations: no limitations HEENT Head: Yes normal to inspection Ears: hearing grossly normal bilaterally, external ears normal and TM abnormal retracted General nose exam: Normal external nose present, No nasal discharge present and Abnormal mucous membranes and turbinates present boggy and pale Face and sinus: Yes normal facial exam and Yes sinuses nontender Mouth: Normal oral and palatal mucosa present and moist mucous membranes Throat: Yes uvula midline, Yes abnormal tonsil (Enlarged grade 3 with post nasal drip evident on left tonsil. ), Yes posterior oropharynx abnormal (Erythema), Yes postnasal drainage and Yes cobblestoning Eyes General: appearance normal, both eyes and all related structures Neck Neck: Yes normal visual inspection Resp Effort & Inspection: normal respiratory effort, able to speak in complete sentences, Actively coughing, no respiratory distress, not tachypneic, no tripod positioning and no use of accessory muscles Auscultation: clear to auscultation bilaterally Cardio Rate: regular rate Rhythm: regular rhythm Heart sounds: normal S1 and S2 Skin General skin exam: no rashes or lesions noted Neuro General: patient oriented x3 Extrem General: Yes normal to inspection and Yes no clubbing, cyanosis or edema Results AMB Rapid Strep AMB Rapid Strep Negative Last Edit by Hans Alvares CMA on 04/21/24 15 :41 Assessment & Plan Assessment & Plan (1) Allergic rhinitis: Code(s): J30.9 - Allergic rhinitis, unspecified Qualifiers: Allergic rhinitis trigger: unspecified Allergic rhinitis seasonality: unspecified Qualified Code(s): J30.9 - Allergic rhinitis, unspecified Plan: In office rapid strep negative. Supportive measures encouraged and reviewed. Advised patient to try a Flonase nasal spray and second-generation antihistamine such as Zyrtec, Claritin, Margoth or similar. Advised consideration of sinus rinse if needed. Advised patient to follow up with primary care provider with worsening or failure to resolve. Plan See above for full details and plan. Coding Level of Care Code Est Pt Level 3 (16708) Diagnoses Allergic rhinitis, unspecified seasonality, unspecified trigger J30.9 Allergic rhinitis trigger: unspecified Allergic rhinitis seasonality: unspecified
== END 2024-04-21 16:03 | disposition home or self-care (01) ==
PROVIDERS: PCP Pediatrics; Visit Provider Registered Nurse
DX: J30.9 Allergic rhinitis, unspecified (principal); Z13.9 Encounter for screening, unspecified

== ENCOUNTER → 2024-04-21 15:21 | Outpatient (BNVA) | payer BC, SELFPAY | PROVIDERS: PCP Pediatrics; Visit Provider Registered Nurse | DX: J30.9 Allergic rhinitis, unspecified (principal) | CPT/HCPCS: 87880 ==